=== PATIENT | male | born 1940 | race Caucasian/White ===

== ENCOUNTER 2018-11-17 10:26 | Emergency (ER) | payer OTHER ==
[~2018-11-17] VITALS: Ht 172.7 cm; Wt 77.3 kg
[2018-11-17] MEDS ORDERED: FluPHENAZine HCL 2.5 MG/ML INJ IM ONE (11:45)
[2018-11-17] MEDS ORDERED: HALOPERIDOL LACTATE 5 MG/ML VIAL IM ONE (11:45)
[2018-11-17] MEDS ORDERED: DiphenhydrAMINE HCL 50 MG/ML VIAL IM ONE (11:45)
[2018-11-17] MEDS ORDERED: LORazepam 2 MG/ML VIAL IM ONE (11:45)
[2018-11-17 13:47] LABS: BASOPHILS % (AUTO) 0.4 % (0.0-2.0); EOSINOPHILS % (AUTO) 0.3 % (1.0-6.0); HEMATOCRIT 42.6 % (41-53); HEMOGLOBIN 14.2 g/dL (13.5-17.5); LYMPHOCYTES % (AUTO) 10.3 % (22.0-44.0); MEAN CORPUSCULAR HEMOGLOBIN 30.4 pg (26.0-34.0); MEAN CORPUSCULAR HGB CONC 33.4 G/dL (31.0-37.0); MEAN CORPUSCULAR VOLUME 91 fL (80-100); MONOCYTES # (AUTO) 0.6 K/uL (0.1-1.0); MONOCYTES % (AUTO) 6.6 % (2.0-9.0); NEUTROPHILS # (AUTO) 7.6 K/uL (1.8-7.7); NEUTROPHILS % (AUTO) 82.4 % (40.0-70.0); PLATELET COUNT (AUTO) 240 K/uL (150-450); RED BLOOD CELL COUNT(AUTO) 4.67 MIL/uL (4.50-5.90); RED CELL DISTRIBUTION WIDTH 14.7 % (11.5-14.5)
[2018-11-17 13:56] LABS: ANION GAP 12 mmol/L (8-16); CALCIUM, TOTAL 9.5 mg/dL (8.8-10.5); CARBON DIOXIDE 24 mmol/L (22-29); CHLORIDE 103 mmol/L (98-107); CREATININE 0.84 mg/dL (0.60-1.30); GLUCOSE,RANDOM 109 mg/dL (70-110); POTASSIUM 3.8 mmol/L (3.5-5.1); SODIUM SERUM 139 mmol/L (136-145); UREA NITROGEN, BLOOD 10 mg/dL (7-18)
[2018-11-17 13:57] LABS: GLOMERULAR FILTR. RATE CALC > 60 mL/min (>60)
[2018-11-17 14:02] LABS: ALANINE AMINOTRANSFERASE 12 U/L (12-78); ALBUMIN 4.3 g/dL (3.4-5.0); ALKALINE PHOSPHATASE 54 U/L (46-116); ASPARTATE AMINOTRANSFERASE 20 U/L (15-37); BILIRUBIN,TOTAL 0.5 mg/dL (0.1-1.0); TOTAL PROTEIN, SERUM 7.5 g/dL (6.4-8.2)
[2018-11-17 14:38] LABS: THYROID STIMULATING HORMONE 1.64 uIU/mL (0.36-3.74); VALPROIC ACID < 3 mcg/mL (50-100)
[2018-11-17 17:59] VITALS: BP 135/87
== END 2018-11-17 18:00 | disposition short-term general hospital (02) ==
LOC: EMS 10:28
DX: F20.9 Schizophrenia, unspecified (principal); Z88.8 Allergy status to other drugs, medicaments and biological substances
CPT/HCPCS: 36415; 80053; 80164; 84443; 85025; 96372; 99285; G0480; J1200; J2060; J3490

== ENCOUNTER 2019-05-03 19:30 | Emergency (ER) | payer OTHER ==
[~2019-05-03] VITALS: Ht 172.7 cm; Wt 84.5 kg
[2019-05-03 20:44] LABS: BASOPHILS % (AUTO) 0.2 % (0.0-2.0); EOSINOPHILS % (AUTO) 0.3 % (1.0-6.0); HEMATOCRIT 40.1 % (41-53); HEMOGLOBIN 13.5 g/dL (13.5-17.5); LYMPHOCYTES # (AUTO) 1.5 K/uL (1.0-4.8); LYMPHOCYTES % (AUTO) 14.2 % (22.0-44.0); MEAN CORPUSCULAR HEMOGLOBIN 30.4 pg (26.0-34.0); MEAN CORPUSCULAR HGB CONC 33.5 G/dL (31.0-37.0); MEAN CORPUSCULAR VOLUME 91 fL (80-100); MONOCYTES % (AUTO) 9.3 % (2.0-9.0); NEUTROPHILS # (AUTO) 8.1 K/uL (1.8-7.7); PLATELET COUNT (AUTO) 248 K/uL (150-450); RED BLOOD CELL COUNT(AUTO) 4.42 MIL/uL (4.50-5.90); RED CELL DISTRIBUTION WIDTH 15.5 % (11.5-14.5)
[2019-05-03 20:56] LABS: ANION GAP 9 mmol/L (8-16); CALCIUM, TOTAL 9.2 mg/dL (8.8-10.5); CARBON DIOXIDE 27 mmol/L (22-29); CHLORIDE 103 mmol/L (98-107); CREATININE 0.95 mg/dL (0.60-1.30); GLUCOSE,RANDOM 115 mg/dL (70-110); POTASSIUM 4.2 mmol/L (3.5-5.1); SODIUM SERUM 139 mmol/L (136-145); UREA NITROGEN, BLOOD 13 mg/dL (7-18)
[2019-05-03 20:57] LABS: GLOMERULAR FILTR. RATE CALC > 60 mL/min (>60)
[2019-05-03 21:01] LABS: ALANINE AMINOTRANSFERASE 7 U/L (12-78); ALBUMIN 4.2 g/dL (3.4-5.0); ALKALINE PHOSPHATASE 56 U/L (46-116); ASPARTATE AMINOTRANSFERASE 18 U/L (15-37); BILIRUBIN,TOTAL 0.4 mg/dL (0.1-1.0); TOTAL PROTEIN, SERUM 7.2 g/dL (6.4-8.2)
[2019-05-03] MEDS ORDERED: LORazepam 2 MG/ML VIAL IM ONE (22:30)
[2019-05-03] MEDS ORDERED: FluPHENAZine HCL 2.5 MG/ML INJ IM ONE (22:30)
[2019-05-04 02:00] LABS: APPEARANCE,URINE CLEAR (CLEAR); BILIRUBIN,URINE NEGATIVE (NEGATIVE); GLUCOSE, URINE (UA) NEGATIVE (NEGATIVE); KETONES,URINE NEGATIVE (NEGATIVE); LEUKOCYTE ESTERASE ,URINE NEGATIVE (NEGATIVE); NITRATE,URINE NEGATIVE (NEGATIVE); OCCULT BLOOD,URINE NEGATIVE (NEGATIVE); PROTEIN,URINE NEGATIVE (NEGATIVE); UROBILINOGEN,URINE 0.2 mg/dL (<=1.0)
[2019-05-04 02:05] LABS: AMPHET/METH SCREEN,URINE NEGATIVE (NEGATIVE); BARBITURATE SCREEN, URINE NEGATIVE (NEGATIVE); BENZODIAZEPINES SCREEN,URINE NEGATIVE (NEGATIVE); CANNABINOID SCREEN,URINE NEGATIVE (NEGATIVE); COCAINE SCREEN,URINE NEGATIVE (NEGATIVE); METHADONE SCREEN, URINE NEGATIVE (NEGATIVE); OPIATE SCREEN,URINE NEGATIVE (NEGATIVE); PHENCYCLIDINE SCREEN,URINE NEGATIVE (NEGATIVE)
[2019-05-04 06:14] VITALS: BP 134/67
[2019-05-04] MEDS ORDERED: LORazepam 2 MG/ML VIAL IM ONE (06:45)
[2019-05-04] MEDS ORDERED: DiphenhydrAMINE HCL 50 MG/ML VIAL IM ONE (06:45)
== END 2019-05-04 07:06 | disposition short-term general hospital (02) ==
LOC: EMS 19:31
DX: F20.9 Schizophrenia, unspecified (principal); Z88.8 Allergy status to other drugs, medicaments and biological substances
CPT/HCPCS: 36415; 70450; 80053; 80307; 81003; 85025; 96372 ×2; 99285; G0480; J1200; J2060 ×2; J3490

== ENCOUNTER 2023-12-27 09:37 | Inpatient (IN) | payer MEDICARE, MEDICAID ==
[~2023-12-27] VITALS: Ht 175.3 cm; Wt 89.5 kg
[2023-12-27 14:32] LABS: COVID AG,FIA SOURCE NASAL SWAB
[2023-12-27 14:52] LABS: SARS-COV2 (COVID) ANTIGEN,FIA Negative (Negative)
[2023-12-27 18:47] LABS: APPEARANCE,URINE CLEAR (CLEAR); BILIRUBIN,URINE NEGATIVE (NEGATIVE); COLOR,URINE LIGHT YELLOW (YELLOW); GLUCOSE, URINE (UA) NEGATIVE (NEGATIVE); KETONES,URINE NEGATIVE (NEGATIVE); LEUKOCYTE ESTERASE ,URINE SMALL (NEGATIVE); NITRATE,URINE NEGATIVE (NEGATIVE); OCCULT BLOOD,URINE NEGATIVE (NEGATIVE); PROTEIN,URINE TRACE mg/dL (NEGATIVE); SPECIFIC GRAVITIY, URINE 1.022 (1.003-1.030); UROBILINOGEN,URINE <=1.0 mg/dL (<=1.0)
[2023-12-27 18:53] LABS: ALCOHOL, URINE DRUG SCREEN NEGATIVE (NEGATIVE); AMPHET/METH SCREEN,URINE NEGATIVE (NEGATIVE); BARBITURATE SCREEN, URINE NEGATIVE (NEGATIVE); BENZODIAZEPINES SCREEN,URINE NEGATIVE (NEGATIVE); CANNABINOID SCREEN,URINE NEGATIVE (NEGATIVE); COCAINE SCREEN,URINE NEGATIVE (NEGATIVE); METHADONE SCREEN, URINE NEGATIVE (NEGATIVE); OPIATE SCREEN,URINE NEGATIVE (NEGATIVE); PHENCYCLIDINE SCREEN,URINE NEGATIVE (NEGATIVE)
[2023-12-27 19:06] LABS: BACTERIA,URINE None Seen /HPF (None Seen); RBC,URINE None Seen /HPF (0-2); SQUAMOUS EPITHELIAL CELL,UR None Seen /LPF (None Seen); WBC,URINE 0-2 /HPF (0-5)
[2023-12-27] MEDS ORDERED: OLANZapine 5 MG RAPDIS TABLET PO PRN (23:15)
[2023-12-27] MEDS ORDERED: LORazepam 2 MG TABLET PO PRN (23:15)
[2023-12-27] MEDS ORDERED: ZOLPIDEM TARTRATE 10 MG TABLET PO PRN (23:15)
[2023-12-27] MEDS: LORazepam 2 MG/ML VIAL IM ONE (23:36)
[2023-12-27] MEDS: ZIPRASIDONE MESYLATE 20 MG/VIAL IM ONE (23:36)
[2023-12-27] MEDS: DiphenhydrAMINE HCL 50 MG/ML VIAL IM ONE (23:36)
[2023-12-28] MEDS: ChlorproMAZINE HCL 50 MG/2 ML AMP IM ONE (22:18)
[2023-12-28] MEDS ORDERED: MAG HYDROX/ALUMINUM HYD/SIMETH ES 30 ML SUSPENSION UDCUP PO PRN (22:30)
[2023-12-28] MEDS ORDERED: DOCUSATE SODIUM 100 MG CAPSULE PO PRN (22:30)
[2023-12-28] MEDS ORDERED: BENZOCAINE/MENTHOL LOZENGE PO PRN (22:30)
[2023-12-28] MEDS ORDERED: ONDANSETRON HCL 4 MG TABLET PO PRN (22:30)
[2023-12-28] MEDS ORDERED: MAGNESIUM HYDROXIDE SUSPENSION 30 ML UDCUP PO PRN (22:30)
[2023-12-28] MEDS ORDERED: ALBUTEROL SULFATE HFA 90 MCG/PUFF 8 GM INHALER IH PRN (22:30)
[2023-12-28] MEDS ORDERED: OMEPRAZOLE 20 MG CAPSULE PO PRN (22:30)
[2023-12-28] MEDS ORDERED: IBUPROFEN 600 MG TABLET PO PRN (22:30)
[2023-12-28] MEDS ORDERED: ACETAMINOPHEN 325 MG TABLET PO PRN (22:30)
[2023-12-28] MEDS ORDERED: CloNIDine HCL 0.1 MG TABLET PO PRN (22:30)
[2023-12-28] MEDS ORDERED: PETROLATUM,WHITE 28 GM JELLY TP PRN (22:30)
[2023-12-28] MEDS ORDERED: BACITRACIN 28 GM OINTMENT TP PRN (22:30)
[2023-12-28 22:33] VITALS: RESP 18
[2023-12-29 12:37] VITALS: RESP 18
[2023-12-29 21:24] VITALS: RESP 18
[2023-12-30 16:49] VITALS: BP 109/56; PULSE 67; RESP 19; TEMP 96
[2023-12-30] MEDS: LOPERAMIDE HCL 2 MG CAPSULE PO PRN (17:21)
[2023-12-30 19:48] LABS: APPEARANCE,URINE CLEAR (CLEAR); BILIRUBIN,URINE NEGATIVE (NEGATIVE); COLOR,URINE YELLOW (YELLOW); GLUCOSE, URINE (UA) NEGATIVE (NEGATIVE); KETONES,URINE NEGATIVE (NEGATIVE); LEUKOCYTE ESTERASE ,URINE MODERATE (NEGATIVE); NITRATE,URINE NEGATIVE (NEGATIVE); OCCULT BLOOD,URINE NEGATIVE (NEGATIVE); PROTEIN,URINE NEGATIVE (NEGATIVE); SPECIFIC GRAVITIY, URINE 1.023 (1.003-1.030); UROBILINOGEN,URINE <=1.0 mg/dL (<=1.0)
[2023-12-30 19:53] LABS: ALCOHOL, URINE DRUG SCREEN NEGATIVE (NEGATIVE); AMPHET/METH SCREEN,URINE NEGATIVE (NEGATIVE); BARBITURATE SCREEN, URINE NEGATIVE (NEGATIVE); BENZODIAZEPINES SCREEN,URINE NEGATIVE (NEGATIVE); CANNABINOID SCREEN,URINE NEGATIVE (NEGATIVE); COCAINE SCREEN,URINE NEGATIVE (NEGATIVE); METHADONE SCREEN, URINE NEGATIVE (NEGATIVE); OPIATE SCREEN,URINE NEGATIVE (NEGATIVE); PHENCYCLIDINE SCREEN,URINE NEGATIVE (NEGATIVE)
[2023-12-30 20:00] LABS: BACTERIA,URINE Rare /HPF (None Seen); RBC,URINE 0-2 /HPF (0-2); SQUAMOUS EPITHELIAL CELL,UR Rare /LPF (None Seen)
[2023-12-30 20:30] VITALS: RESP 18; TEMP 97.2
[2023-12-31 10:37] VITALS: BP 106/59; PULSE 102; RESP 18; TEMP 96.8
[2023-12-31 20:18] VITALS: RESP 18
[2024-01-01 10:50] VITALS: RESP 18
[2024-01-01] MEDS: RisperiDONE 3 MG TABLET PO SCH (17:00)
[2024-01-01] MEDS: NITROFURANTOIN MONOHYD/M-CRYST 100 MG CAPSULE [MACROBID] PO SCH (17:00)
[2024-01-01] MEDS: BENZTROPINE MESYLATE 2 MG TABLET PO SCH (21:00)
[2024-01-01 22:21] VITALS: RESP 18
[2024-01-02 08:44] VITALS: RESP 19
[2024-01-02 20:20] VITALS: RESP 18
[2024-01-03 10:58] VITALS: RESP 18
[2024-01-03 22:04] VITALS: RESP 18
[2024-01-04 08:22] VITALS: RESP 17
[2024-01-04 21:27] VITALS: RESP 18
[2024-01-05 10:59] VITALS: RESP 19
[2024-01-05 22:03] VITALS: RESP 18
[2024-01-06 10:16] VITALS: RESP 18
[2024-01-06 20:26] VITALS: RESP 18
[2024-01-07 08:18] VITALS: RESP 18
[2024-01-08 09:22] VITALS: RESP 18
[2024-01-08] MEDS ORDERED: HALOPERIDOL LACTATE 5 MG/ML VIAL ONE (11:59)
[2024-01-08] MEDS ORDERED: HALOPERIDOL LACTATE 5 MG/ML VIAL IM PRN (12:00)
[2024-01-08] MEDS: FluPHENAZine DECANOATE 25 MG/ML IM SCH (14:40)
[2024-01-08 20:02] VITALS: RESP 18
[2024-01-09 08:52] VITALS: RESP 18
[2024-01-09 20:13] VITALS: RESP 18
[2024-01-10 10:41] VITALS: RESP 18
[2024-01-10 20:43] VITALS: RESP 18
[2024-01-11 08:48] VITALS: RESP 17
[2024-01-11 20:57] VITALS: RESP 18
[2024-01-12 06:58] LABS: APPEARANCE,URINE CLEAR (CLEAR); BILIRUBIN,URINE NEGATIVE (NEGATIVE); COLOR,URINE LIGHT YELLOW (YELLOW); GLUCOSE, URINE (UA) NEGATIVE (NEGATIVE); KETONES,URINE NEGATIVE (NEGATIVE); LEUKOCYTE ESTERASE ,URINE TRACE (NEGATIVE); NITRATE,URINE NEGATIVE (NEGATIVE); OCCULT BLOOD,URINE NEGATIVE (NEGATIVE); PH,URINE 5.5 (5.0-8.0); PROTEIN,URINE NEGATIVE (NEGATIVE); SPECIFIC GRAVITIY, URINE 1.026 (1.003-1.030); UROBILINOGEN,URINE <=1.0 mg/dL (<=1.0)
[2024-01-12 07:14] LABS: BACTERIA,URINE None Seen /HPF (None Seen); RBC,URINE None Seen /HPF (0-2); WBC,URINE 0-2 /HPF (0-5)
[2024-01-12 09:02] VITALS: RESP 18
[2024-01-12 21:57] VITALS: RESP 18
[2024-01-13 09:10] VITALS: RESP 18
[2024-01-13] MEDS ORDERED: BENZ2TAB84 PO (13:45)
[2024-01-13] MEDS ORDERED: RISP3TAB77 PO (13:46)
== END 2024-01-14 00:04 | DRG 885 ==
LOC: EMS 09:37 → 3EC 12-28 21:23
PROVIDERS: ADMIT Psychiatry & Neurology Psychiatry; ATTEND Psychiatry & Neurology Psychiatry
PROC: GZ51ZZZ Individual Psychotherapy, Behavioral (ICD-10-PCS; principal; 2024-01-05)
PROC: GZHZZZZ Group Psychotherapy (ICD-10-PCS; 2024-01-05)
DX: F20.9 Schizophrenia, unspecified (principal); F41.9 Anxiety disorder, unspecified; M19.90 Unspecified osteoarthritis, unspecified site; G47.00 Insomnia, unspecified; Z20.822 Contact with and (suspected) exposure to COVID-19; I10 Essential (primary) hypertension; K59.00 Constipation, unspecified; Z88.8 Allergy status to other drugs, medicaments and biological substances; Z91.148 Patient's other noncompliance with medication regimen for other reason
CPT/HCPCS: 80307; 81001; 87086; 87186; 96372; 99284; 99285; J1200; J1630; J2060; J2680; J3230; J3486; J3535

== ENCOUNTER 2024-04-10 13:16 | Inpatient (IN) | payer MEDICARE, MEDICAID ==
[~2024-04-10] VITALS: Ht 170.2 cm; Wt 75.3 kg
[~2024-04-10 13:16] MED LIST: BENZ2TAB84 PO; RISP3TAB77 PO
[2024-04-10 14:29] VITALS: O2SAT 97
[2024-04-10] MEDS ORDERED: LORazepam 2 MG TABLET PO PRN (15:00)
[2024-04-10] MEDS ORDERED: ZOLPIDEM TARTRATE 10 MG TABLET PO PRN (15:00)
[2024-04-10] MEDS: ChlorproMAZINE HCL 50 MG/2 ML AMP IM ONE (15:18)
[2024-04-10] MEDS: DiphenhydrAMINE HCL 50 MG/ML VIAL IM ONE (15:18)
[2024-04-10] MEDS: LORazepam 2 MG/ML VIAL IM ONE (15:18)
[2024-04-10 17:47] LABS: COVID AG,FIA SOURCE NASAL SWAB
[2024-04-10 18:09] LABS: SARS-COV2 (COVID) ANTIGEN,FIA Negative (Negative)
[2024-04-10] MEDS ORDERED: MAG HYDROX/ALUMINUM HYD/SIMETH ES 30 ML SUSPENSION UDCUP PO PRN (20:45)
[2024-04-10] MEDS ORDERED: MAGNESIUM HYDROXIDE SUSPENSION 30 ML UDCUP PO PRN (20:45)
[2024-04-10] MEDS ORDERED: ALBUTEROL SULFATE HFA 90 MCG/PUFF 8 GM INHALER IH PRN (20:45)
[2024-04-10] MEDS ORDERED: OMEPRAZOLE 20 MG CAPSULE PO PRN (20:45)
[2024-04-10] MEDS ORDERED: DOCUSATE SODIUM 100 MG CAPSULE PO PRN (20:45)
[2024-04-10] MEDS ORDERED: BENZOCAINE/MENTHOL LOZENGE PO PRN (20:45)
[2024-04-10] MEDS ORDERED: BACITRACIN 28 GM OINTMENT TP PRN (20:45)
[2024-04-10] MEDS ORDERED: IBUPROFEN 600 MG TABLET PO PRN (20:45)
[2024-04-10] MEDS ORDERED: ACETAMINOPHEN 325 MG TABLET PO PRN (20:45)
[2024-04-10] MEDS ORDERED: PETROLATUM,WHITE 28 GM JELLY TP PRN (20:45)
[2024-04-10] MEDS ORDERED: CloNIDine HCL 0.1 MG TABLET PO PRN (20:45)
[2024-04-10] MEDS ORDERED: ONDANSETRON 4 MG TABLET PO PRN (20:45)
[2024-04-10 20:58] VITALS: BP 130/46; PULSE 80; RESP 20; TEMP 97.6; O2SAT 99
[2024-04-11 08:31] LABS: BASOPHILS % (AUTO) 0.2 % (0.0-2.0); EOSINOPHILS % (AUTO) 2.4 % (1.0-6.0); HEMATOCRIT 40.2 % (41-53); HEMOGLOBIN 13.5 g/dL (13.5-17.5); LYMPHOCYTES # (AUTO) 1.2 K/uL (1.0-4.8); LYMPHOCYTES % (AUTO) 14.5 % (22.0-44.0); MEAN CORPUSCULAR HEMOGLOBIN 30.7 pg (26.0-34.0); MEAN CORPUSCULAR HGB CONC 33.6 G/dL (31.0-37.0); MEAN CORPUSCULAR VOLUME 91 fL (80-100); MONOCYTES # (AUTO) 0.9 K/uL (0.1-1.0); MONOCYTES % (AUTO) 10.2 % (2.0-9.0); NEUTROPHILS # (AUTO) 6.2 K/uL (1.8-7.7); NEUTROPHILS % (AUTO) 72.7 % (40.0-70.0); PLATELET COUNT (AUTO) 238 K/uL (150-450); RED CELL DISTRIBUTION WIDTH 14.8 % (11.5-14.5); WHITE BLOOD COUNT (AUTO) 8.6 K/uL (4.5-11.0)
[2024-04-11 08:43] LABS: ANION GAP 14 mmol/L (8-16); CALCIUM, TOTAL 8.7 mg/dL (8.8-10.5); CARBON DIOXIDE 24 mmol/L (22-29); CHLORIDE 101 mmol/L (98-107); CREATININE 1.09 mg/dL (0.60-1.30); GLOMERULAR FILTR. RATE CALC > 60 mL/min (>60); GLUCOSE,RANDOM 104 mg/dL (70-110); SODIUM SERUM 139 mmol/L (136-145); UREA NITROGEN, BLOOD 15 mg/dL (7-18)
[2024-04-11 08:45] LABS: ALCOHOL, BLOOD (SERUM) < 3 mg/dL (0-10)
[2024-04-11] MEDS: POTASSIUM CHLORIDE 20 MEQ ER TABLET PO ONE (09:42)
[2024-04-11 12:40] VITALS: RESP 18
[2024-04-11 21:43] VITALS: RESP 18
[2024-04-12 08:07] VITALS: RESP 17
[2024-04-12] MEDS: DIVALPROEX SODIUM 500 MG DR TABLET PO SCH (17:00)
[2024-04-12] MEDS: MEMANTINE HCL 5 MG TABLET PO SCH (17:00)
[2024-04-12 20:09] VITALS: RESP 18
[2024-04-12] MEDS: BENZTROPINE MESYLATE 2 MG TABLET PO SCH (21:00)
[2024-04-13 08:01] VITALS: RESP 16
[2024-04-13] MEDS: OLANZapine 5 MG RAPDIS TABLET PO PRN (08:38)
[2024-04-13] MEDS: MEMANTINE HCL 10 MG TABLET PO SCH (08:38)
[2024-04-13 15:28] VITALS: BP 137/73; PULSE 94; RESP 20; O2SAT 98
[2024-04-13 22:02] VITALS: BP 112/52; PULSE 72; RESP 18; TEMP 96.8; O2SAT 98
[2024-04-14 08:41] VITALS: RESP 18
[2024-04-14 20:14] VITALS: RESP 18
[2024-04-15 11:16] VITALS: RESP 16
[2024-04-15 21:57] VITALS: RESP 18; TEMP 97.6
[2024-04-16 08:10] VITALS: RESP 16
[2024-04-17 10:37] VITALS: RESP 16; RESP 17
[2024-04-18] MEDS: LORazepam 2 MG/ML VIAL IM ONE (10:40)
[2024-04-18] MEDS: DiphenhydrAMINE HCL 50 MG/ML VIAL IM ONE (10:40)
[2024-04-18] MEDS: HALOPERIDOL LACTATE 5 MG/ML VIAL IM ONE (10:40)
[2024-04-18 21:24] VITALS: RESP 18
[2024-04-19] MEDS ORDERED: FluPHENAZine DECANOATE 25 MG/ML IM SCH (09:00)
[2024-04-19] MEDS ORDERED: LORazepam 2 MG/ML VIAL ONE (10:16)
[2024-04-19] MEDS ORDERED: DiphenhydrAMINE HCL 50 MG/ML VIAL ONE (10:16)
[2024-04-19] MEDS ORDERED: HALOPERIDOL LACTATE 5 MG/ML VIAL ONE (10:16)
[2024-04-19] MEDS: LORazepam 2 MG/ML VIAL IM ONE (10:30)
[2024-04-19] MEDS: DiphenhydrAMINE HCL 50 MG/ML VIAL IM ONE (10:30)
[2024-04-19] MEDS: HALOPERIDOL LACTATE 5 MG/ML VIAL IM ONE (10:30)
[2024-04-20 02:34] VITALS: RESP 18
[2024-04-20] MEDS ORDERED: HALOPERIDOL LACTATE 5 MG/ML VIAL IM PRN (10:00)
[2024-04-20 20:44] VITALS: RESP 18
[2024-04-21 08:49] VITALS: RESP 17
[2024-04-21 19:22] VITALS: RESP 17
[2024-04-21 20:09] VITALS: RESP 17
[2024-04-22 08:00] VITALS: RESP 17
[2024-04-22 21:17] VITALS: RESP 18
[2024-04-23 16:23] VITALS: RESP 18
[2024-04-23 20:09] VITALS: RESP 18
[2024-04-24 08:11] VITALS: RESP 18
[2024-04-24 20:37] VITALS: RESP 17
[2024-04-25] VITALS (8 sets, daily range): BP systolic 91–127; BP diastolic 55–68; PULSE 73–110; RESP 16–18; TEMP 96–98.9; O2SAT 95–98
[2024-04-25] MEDS: LORazepam 2 MG/ML VIAL IM ONE (11:25)
[2024-04-25] MEDS: DiphenhydrAMINE HCL 50 MG/ML VIAL IM ONE (11:26)
[2024-04-25] MEDS: HALOPERIDOL LACTATE 5 MG/ML VIAL IM ONE (11:26)
[2024-04-26 08:09] VITALS: RESP 17
[2024-04-26 14:01] VITALS: RESP 17; TEMP 97.6
[2024-04-26 14:41] VITALS: BP 123/52; PULSE 76; RESP 18; TEMP 96.7; O2SAT 97
[2024-04-26 20:00] VITALS: RESP 18
[2024-04-26 22:46] VITALS: RESP 17
[2024-04-27 08:28] VITALS: RESP 15
[2024-04-27 13:52] VITALS: RESP 15
[2024-04-28 08:45] VITALS: RESP 17
[2024-04-28 10:22] VITALS: RESP 16
[2024-04-28 20:21] VITALS: RESP 18
[2024-04-29 01:35] VITALS: RESP 18; TEMP 98
[2024-04-29 08:00] VITALS: RESP 18
[2024-04-30 20:47] VITALS: RESP 18
[2024-05-01 09:15] VITALS: BP 80/45; PULSE 128; RESP 18; O2SAT 98
[2024-05-01 09:19] VITALS: BP 100/50; PULSE 126; RESP 16; O2SAT 98
[2024-05-01 14:55] VITALS: BP 115/72; PULSE 93; RESP 19; O2SAT 97
[2024-05-02 09:22] VITALS: RESP 18
[2024-05-02 20:55] VITALS: BP 98/70; PULSE 73; RESP 18; TEMP 97.3; O2SAT 94
[2024-05-03 08:30] VITALS: RESP 16
[2024-05-03] MEDS: RisperiDONE 2 MG TABLET PO SCH (17:00)
[2024-05-03 20:19] VITALS: RESP 18
[2024-05-03] MEDS: FluPHENAZine HCL 2.5 MG/ML INJ IM PRN (20:40)
[2024-05-04 08:24] VITALS: RESP 17
[2024-05-04 20:03] VITALS: BP 131/67; PULSE 86; RESP 18; TEMP 97.4; O2SAT 94
[2024-05-05 08:23] VITALS: RESP 18
[2024-05-05 20:33] VITALS: RESP 16
[2024-05-06 08:01] VITALS: RESP 17
[2024-05-06 08:03] VITALS: RESP 16
[2024-05-06 20:43] VITALS: RESP 18
[2024-05-07 09:33] VITALS: RESP 18
[2024-05-07 21:37] VITALS: RESP 18
[2024-05-08 08:17] VITALS: RESP 17
[2024-05-08 20:46] VITALS: RESP 17
[2024-05-08 20:47] VITALS: RESP 18
[2024-05-10 08:50] VITALS: RESP 16
[2024-05-11 12:41] VITALS: RESP 16
[2024-05-11 20:02] VITALS: RESP 16
[2024-05-11] MEDS: LOPERAMIDE HCL 2 MG CAPSULE PO PRN (21:57)
[2024-05-12 09:52] LABS: C.DIFF GDH ANTIGEN, Stool Negative (Negative); C.DIFF TOXINS A&B, Stool Negative (Negative)
== END 2024-05-12 18:19 | disposition short-term general hospital (02) | DRG 885 ==
LOC: EMS 13:29 → B2X 18:01
PROVIDERS: ADMIT Psychiatry & Neurology Psychiatry; ATTEND Psychiatry & Neurology Psychiatry
DX: F20.9 Schizophrenia, unspecified (principal); F41.9 Anxiety disorder, unspecified; E87.6 Hypokalemia; I10 Essential (primary) hypertension; G47.00 Insomnia, unspecified; K59.00 Constipation, unspecified; Z20.822 Contact with and (suspected) exposure to COVID-19; F94.0 Selective mutism; Z91.148 Patient's other noncompliance with medication regimen for other reason; Z88.8 Allergy status to other drugs, medicaments and biological substances
CPT/HCPCS: 80048; 85025; 87081; 87324; 87449; 87481; G0480; J1200; J1630; J2060; J2680; J3230; J3490

== ENCOUNTER 2024-04-14 10:32 | Emergency (ER) | payer MEDICAID, MEDICARE ==
[~2024-04-14] VITALS: Ht 177.8 cm; Wt 81.0 kg
[2024-04-14 11:46] LABS: BASOPHILS % (AUTO) 0.2 % (0.0-2.0); EOSINOPHILS % (AUTO) 2.5 % (1.0-6.0); HEMATOCRIT 42.9 % (41-53); HEMOGLOBIN 14.3 g/dL (13.5-17.5); LYMPHOCYTES # (AUTO) 1.6 K/uL (1.0-4.8); LYMPHOCYTES % (AUTO) 18.4 % (22.0-44.0); MEAN CORPUSCULAR HEMOGLOBIN 30.2 pg (26.0-34.0); MEAN CORPUSCULAR HGB CONC 33.2 G/dL (31.0-37.0); MEAN CORPUSCULAR VOLUME 91 fL (80-100); MONOCYTES # (AUTO) 0.9 K/uL (0.1-1.0); MONOCYTES % (AUTO) 10.4 % (2.0-9.0); NEUTROPHILS # (AUTO) 5.9 K/uL (1.8-7.7); NEUTROPHILS % (AUTO) 68.5 % (40.0-70.0); PLATELET COUNT (AUTO) 235 K/uL (150-450); RED BLOOD CELL COUNT(AUTO) 4.72 MIL/uL (4.50-5.90); RED CELL DISTRIBUTION WIDTH 14.7 % (11.5-14.5); WHITE BLOOD COUNT (AUTO) 8.6 K/uL (4.5-11.0)
[2024-04-14 12:06] LABS: ANION GAP 20 mmol/L (8-16); CALCIUM, TOTAL 8.7 mg/dL (8.8-10.5); CARBON DIOXIDE 19 mmol/L (22-29); CHLORIDE 99 mmol/L (98-107); CREATININE 0.94 mg/dL (0.60-1.30); GLOMERULAR FILTR. RATE CALC > 60 mL/min (>60); GLUCOSE,RANDOM 72 mg/dL (70-110); POTASSIUM 3.4 mmol/L (3.5-5.1); SODIUM SERUM 138 mmol/L (136-145); UREA NITROGEN, BLOOD 12 mg/dL (7-18)
[2024-04-14 12:10] LABS: ALCOHOL, BLOOD (SERUM) < 3 mg/dL (0-10)
[2024-04-14 12:26] LABS: ALANINE AMINOTRANSFERASE 23 U/L (12-78); ALBUMIN 3.7 g/dL (3.4-5.0); ALKALINE PHOSPHATASE 56 U/L (46-116); ASPARTATE AMINOTRANSFERASE 28 U/L (15-37); TOTAL PROTEIN, SERUM 7.3 g/dL (6.4-8.2)
[2024-04-14] MEDS: POTASSIUM CHLORIDE 10 MEQ ER TABLET PO ONE (13:54)
[2024-04-14 14:23] VITALS: BP 142/75; PULSE 85; RESP 16; O2SAT 97
== END 2024-04-14 15:03 ==
LOC: EMS 10:32
DX: F69 Unspecified disorder of adult personality and behavior (principal); I10 Essential (primary) hypertension; Z88.6 Allergy status to analgesic agent; Z88.8 Allergy status to other drugs, medicaments and biological substances; Z91.011 Allergy to milk products
CPT/HCPCS: 99285; 80048; 80076; 85025; 36415; G0480; 99283

== ENCOUNTER → 2024-05-01 | Emergency (ER) | payer MEDICARE, MEDICAID ==
[~2024-05-01] VITALS: Ht 177.8 cm; Wt 81.0 kg
[2024-05-01 17:32] VITALS: TEMP 98
[2024-05-01 19:58] LABS: ANION GAP 15 mmol/L (8-16); CALCIUM, TOTAL 9.3 mg/dL (8.8-10.5); CARBON DIOXIDE 26 mmol/L (22-29); CHLORIDE 96 mmol/L (98-107); CREATININE 1.17 mg/dL (0.60-1.30); GLOMERULAR FILTR. RATE CALC 59 mL/min (>60); GLUCOSE,RANDOM 114 mg/dL (70-110); POTASSIUM 3.4 mmol/L (3.5-5.1); SODIUM SERUM 137 mmol/L (136-145); UREA NITROGEN, BLOOD 9 mg/dL (7-18)
[2024-05-01 20:01] LABS: ALANINE AMINOTRANSFERASE 18 U/L (12-78); ALBUMIN 3.9 g/dL (3.4-5.0); ALKALINE PHOSPHATASE 69 U/L (46-116); ASPARTATE AMINOTRANSFERASE 24 U/L (15-37)
[2024-05-01 20:03] LABS: ALCOHOL, BLOOD (SERUM) < 3 mg/dL (0-10); BASOPHILS % (AUTO) 0.6 % (0.0-2.0); EOSINOPHILS % (AUTO) 1.7 % (1.0-6.0); HEMATOCRIT 52.3 % (41-53); HEMOGLOBIN 16.6 g/dL (13.5-17.5); LYMPHOCYTES # (AUTO) 2.2 K/uL (1.0-4.8); LYMPHOCYTES % (AUTO) 19.2 % (22.0-44.0); MEAN CORPUSCULAR HEMOGLOBIN 29.8 pg (26.0-34.0); MEAN CORPUSCULAR HGB CONC 31.8 G/dL (31.0-37.0); MEAN CORPUSCULAR VOLUME 94 fL (80-100); MONOCYTES # (AUTO) 1.2 K/uL (0.1-1.0); MONOCYTES % (AUTO) 10.5 % (2.0-9.0); NEUTROPHILS # (AUTO) 7.8 K/uL (1.8-7.7); PLATELET COUNT (AUTO) 182 K/uL (150-450); RED BLOOD CELL COUNT(AUTO) 5.57 MIL/uL (4.50-5.90); RED CELL DISTRIBUTION WIDTH 15.9 % (11.5-14.5); WHITE BLOOD COUNT (AUTO) 11.5 K/uL (4.5-11.0)
[2024-05-01] MEDS: POTASSIUM CHLORIDE 10 MEQ ER TABLET PO ONE (21:41)
[2024-05-02 00:13] VITALS: BP 118/71; PULSE 64; RESP 16; O2SAT 96
== END | disposition still patient (30) ==
LOC: EMS 15:35
DX: F20.9 Schizophrenia, unspecified (principal); E87.6 Hypokalemia; I11.9 Hypertensive heart disease without heart failure; E73.9 Lactose intolerance, unspecified
CPT/HCPCS: 99283; 80048; 80076; 85025; 36415; G0480

== ENCOUNTER 2024-05-12 03:11 | Inpatient (IN) | payer MEDICARE, MEDICAID ==
[~2024-05-12] VITALS: Ht 172.7 cm; Wt 73.8 kg
[2024-05-12 10:24] LABS: BASOPHILS % (AUTO) 0.3 % (0.0-2.0); EOSINOPHILS % (AUTO) 1.9 % (1.0-6.0); HEMATOCRIT 44.1 % (41-53); HEMOGLOBIN 14.9 g/dL (13.5-17.5); LYMPHOCYTES % (AUTO) 18.8 % (22.0-44.0); MEAN CORPUSCULAR HEMOGLOBIN 30.3 pg (26.0-34.0); MEAN CORPUSCULAR HGB CONC 33.8 G/dL (31.0-37.0); MEAN CORPUSCULAR VOLUME 90 fL (80-100); MONOCYTES # (AUTO) 1.2 K/uL (0.1-1.0); MONOCYTES % (AUTO) 11.3 % (2.0-9.0); NEUTROPHILS # (AUTO) 7.2 K/uL (1.8-7.7); NEUTROPHILS % (AUTO) 67.7 % (40.0-70.0); PLATELET COUNT (AUTO) 257 K/uL (150-450); RED BLOOD CELL COUNT(AUTO) 4.92 MIL/uL (4.50-5.90); WHITE BLOOD COUNT (AUTO) 10.6 K/uL (4.5-11.0)
[2024-05-12 10:41] LABS: ANION GAP 9 mmol/L (8-16); CALCIUM, TOTAL 8.6 mg/dL (8.8-10.5); CARBON DIOXIDE 30 mmol/L (22-29); CHLORIDE 97 mmol/L (98-107); CREATININE 1.02 mg/dL (0.60-1.30); GLOMERULAR FILTR. RATE CALC > 60 mL/min (>60); GLUCOSE,RANDOM 95 mg/dL (70-110); POTASSIUM 3.2 mmol/L (3.5-5.1); SODIUM SERUM 136 mmol/L (136-145); UREA NITROGEN, BLOOD 13 mg/dL (7-18)
[2024-05-12 10:42] LABS: LIPASE 15 U/L (16-77)
[2024-05-12] MEDS ORDERED: MORPHINE SULFATE 2 MG/ML SYRINGE IVP PRN (12:00)
[2024-05-12] MEDS ORDERED: ONDANSETRON HCL 4 MG/2 ML VIAL IVP PRN (12:00)
[2024-05-12] MEDS ORDERED: BISACODYL 10 MG RECTAL RECTAL SUPPOSITORY PR PRN (12:00)
[2024-05-12] MEDS ORDERED: HYDROCODONE/ACETAMINOPHEN 5-325 MG TABLET PO PRN (12:00)
[2024-05-12] MEDS ORDERED: ACETAMINOPHEN 325 MG TABLET PO PRN (12:00)
[2024-05-12] MEDS ORDERED: ZOLPIDEM TARTRATE 5 MG TABLET PO PRN (12:00)
[2024-05-12] MEDS ORDERED: MAGNESIUM HYDROXIDE SUSPENSION 30 ML UDCUP PO PRN (12:00)
[2024-05-12 14:21] VITALS: BP 106/64; PULSE 100; RESP 20; TEMP 98.4; O2SAT 96
[2024-05-12] MEDS: HEPARIN SODIUM,PORCINE 5,000 UNITS/ML VIAL SQ SCH (15:46)
[2024-05-12 20:03] VITALS: BP 130/68; PULSE 84; RESP 19; TEMP 97.8; O2SAT 96
[2024-05-12] MEDS: DOCUSATE SODIUM 100 MG CAPSULE PO SCH (21:00)
[2024-05-12] MEDS: RisperiDONE 3 MG TABLET PO SCH (21:00)
[2024-05-12] MEDS: BENZTROPINE MESYLATE 2 MG TABLET PO SCH (21:00)
[2024-05-13] MEDS: PANTOPRAZOLE SODIUM 40 MG DR TABLET PO SCH (08:22)
[2024-05-13 15:29] VITALS: BP 115/65; PULSE 77; RESP 20; TEMP 98.1; O2SAT 98
[2024-05-13 20:25] VITALS: BP 117/69; PULSE 85; RESP 20; TEMP 98.5; O2SAT 96
[2024-05-14 05:00] VITALS: BP 126/69; PULSE 88; RESP 18; TEMP 98; O2SAT 96
[2024-05-14 07:24] LABS: BASOPHILS % (AUTO) 0.2 % (0.0-2.0); EOSINOPHILS % (AUTO) 3.3 % (1.0-6.0); HEMATOCRIT 45.7 % (41-53); HEMOGLOBIN 15.6 g/dL (13.5-17.5); LYMPHOCYTES # (AUTO) 1.6 K/uL (1.0-4.8); LYMPHOCYTES % (AUTO) 16.4 % (22.0-44.0); MEAN CORPUSCULAR HEMOGLOBIN 30.5 pg (26.0-34.0); MEAN CORPUSCULAR HGB CONC 34.1 G/dL (31.0-37.0); MEAN CORPUSCULAR VOLUME 90 fL (80-100); MONOCYTES # (AUTO) 1.1 K/uL (0.1-1.0); MONOCYTES % (AUTO) 11.6 % (2.0-9.0); NEUTROPHILS # (AUTO) 6.5 K/uL (1.8-7.7); NEUTROPHILS % (AUTO) 68.5 % (40.0-70.0); PLATELET COUNT (AUTO) 254 K/uL (150-450); RED BLOOD CELL COUNT(AUTO) 5.11 MIL/uL (4.50-5.90); WHITE BLOOD COUNT (AUTO) 9.5 K/uL (4.5-11.0)
[2024-05-14 07:30] LABS: ANION GAP 7 mmol/L (8-16); CALCIUM, TOTAL 8.8 mg/dL (8.8-10.5); CARBON DIOXIDE 29 mmol/L (22-29); CHLORIDE 97 mmol/L (98-107); CREATININE 0.76 mg/dL (0.60-1.30); GLOMERULAR FILTR. RATE CALC > 60 mL/min (>60); GLUCOSE,RANDOM 95 mg/dL (70-110); SODIUM SERUM 133 mmol/L (136-145); UREA NITROGEN, BLOOD 9 mg/dL (7-18)
[2024-05-14 07:36] LABS: POTASSIUM 2.5 mmol/L (3.5-5.1)
[2024-05-14] MEDS: POTASSIUM CHLORIDE 10% 40 MEQ/30 ML LIQUID UDCUP PO ONE (08:30)
[2024-05-14 15:57] VITALS: BP 111/55; PULSE 77; RESP 18; TEMP 98.1; O2SAT 100
[2024-05-14 16:56] VITALS: BP 115/56; PULSE 79; RESP 18; TEMP 98; O2SAT 100
[2024-05-14 21:08] VITALS: BP 104/68; PULSE 79; RESP 18; O2SAT 95
[2024-05-15 13:02] LABS: ANION GAP 2 mmol/L (8-16); CALCIUM, TOTAL 8.3 mg/dL (8.8-10.5); CARBON DIOXIDE 31 mmol/L (22-29); CHLORIDE 101 mmol/L (98-107); CREATININE 0.93 mg/dL (0.60-1.30); GLOMERULAR FILTR. RATE CALC > 60 mL/min (>60); GLUCOSE,RANDOM 105 mg/dL (70-110); SODIUM SERUM 134 mmol/L (136-145); UREA NITROGEN, BLOOD 10 mg/dL (7-18)
[2024-05-15 13:04] LABS: POTASSIUM 2.6 mmol/L (3.5-5.1)
[2024-05-15] MEDS: POTASSIUM CHLORIDE 20 MEQ ER TABLET PO ONE (13:16)
[2024-05-15 20:16] VITALS: BP 115/64; PULSE 77; RESP 19; TEMP 97.9; O2SAT 96
[2024-05-15 23:16] VITALS: BP 110/73; PULSE 63; RESP 19; TEMP 97.9; O2SAT 96
[2024-05-16 09:38] VITALS: BP 91/48; PULSE 81; RESP 20; TEMP 98; O2SAT 93
[2024-05-16 10:05] LABS: BASOPHILS % (AUTO) 0.3 % (0.0-2.0); EOSINOPHILS % (AUTO) 3.4 % (1.0-6.0); HEMATOCRIT 44.5 % (41-53); HEMOGLOBIN 15.1 g/dL (13.5-17.5); LYMPHOCYTES # (AUTO) 1.6 K/uL (1.0-4.8); LYMPHOCYTES % (AUTO) 15.3 % (22.0-44.0); MEAN CORPUSCULAR HEMOGLOBIN 30.2 pg (26.0-34.0); MEAN CORPUSCULAR HGB CONC 33.8 G/dL (31.0-37.0); MEAN CORPUSCULAR VOLUME 89 fL (80-100); MONOCYTES # (AUTO) 1.1 K/uL (0.1-1.0); MONOCYTES % (AUTO) 10.7 % (2.0-9.0); NEUTROPHILS # (AUTO) 7.2 K/uL (1.8-7.7); NEUTROPHILS % (AUTO) 70.3 % (40.0-70.0); PLATELET COUNT (AUTO) 262 K/uL (150-450); RED BLOOD CELL COUNT(AUTO) 4.98 MIL/uL (4.50-5.90); RED CELL DISTRIBUTION WIDTH 15.1 % (11.5-14.5); WHITE BLOOD COUNT (AUTO) 10.2 K/uL (4.5-11.0)
[2024-05-16 10:12] LABS: ANION GAP 9 mmol/L (8-16); CARBON DIOXIDE 28 mmol/L (22-29); CHLORIDE 96 mmol/L (98-107); CREATININE 0.62 mg/dL (0.60-1.30); GLOMERULAR FILTR. RATE CALC > 60 mL/min (>60); GLUCOSE,RANDOM 96 mg/dL (70-110); SODIUM SERUM 133 mmol/L (136-145); UREA NITROGEN, BLOOD 9 mg/dL (7-18)
[2024-05-16 10:13] LABS: CALCIUM, TOTAL 8.4 mg/dL (8.8-10.5)
[2024-05-16 10:16] LABS: POTASSIUM 2.5 mmol/L (3.5-5.1)
[2024-05-16 14:48] VITALS: BP 104/50; PULSE 88; RESP 19; TEMP 98.6; O2SAT 93
[2024-05-16 16:06] VITALS: BP 125/64; PULSE 85; RESP 20; TEMP 98; O2SAT 97
[2024-05-16 20:09] VITALS: BP 108/65; PULSE 80; RESP 18; TEMP 98.6; O2SAT 98
[2024-05-17 08:44] VITALS: BP 118/70; PULSE 79; RESP 18; TEMP 98; O2SAT 98
[2024-05-17 12:00] VITALS: BP 115/68; PULSE 75; RESP 18; TEMP 97.5; O2SAT 98
[2024-05-17 20:13] VITALS: BP 90/50; PULSE 84; RESP 18; TEMP 97.6; O2SAT 92
[2024-05-17 20:27] VITALS: BP 98/57; PULSE 77
[2024-05-18 00:35] VITALS: BP 113/52; PULSE 82; RESP 17; TEMP 97.5; O2SAT 95
[2024-05-18 04:20] VITALS: BP 104/61; PULSE 79; RESP 18; TEMP 98.1; O2SAT 95
[2024-05-18 08:29] VITALS: BP 106/54; PULSE 73; RESP 18; TEMP 98.1; O2SAT 95
[2024-05-18 10:00] LABS: BASOPHILS % (AUTO) 0.2 % (0.0-2.0); EOSINOPHILS % (AUTO) 4.2 % (1.0-6.0); HEMOGLOBIN 14.4 g/dL (13.5-17.5); LYMPHOCYTES # (AUTO) 2.2 K/uL (1.0-4.8); LYMPHOCYTES % (AUTO) 22.5 % (22.0-44.0); MEAN CORPUSCULAR HEMOGLOBIN 30.7 pg (26.0-34.0); MEAN CORPUSCULAR HGB CONC 34.4 G/dL (31.0-37.0); MEAN CORPUSCULAR VOLUME 89 fL (80-100); MONOCYTES # (AUTO) 1.1 K/uL (0.1-1.0); MONOCYTES % (AUTO) 11.1 % (2.0-9.0); PLATELET COUNT (AUTO) 252 K/uL (150-450); RED CELL DISTRIBUTION WIDTH 14.7 % (11.5-14.5); WHITE BLOOD COUNT (AUTO) 9.6 K/uL (4.5-11.0)
[2024-05-18 10:10] LABS: CHLORIDE 97 mmol/L (98-107); SODIUM SERUM 134 mmol/L (136-145)
[2024-05-18 10:56] LABS: POTASSIUM 2.7 mmol/L (3.5-5.1)
[2024-05-18 10:58] LABS: ANION GAP 7 mmol/L (8-16); CARBON DIOXIDE 30 mmol/L (22-29)
[2024-05-18 10:59] LABS: CALCIUM, TOTAL 8.1 mg/dL (8.8-10.5); CREATININE 0.64 mg/dL (0.60-1.30); GLOMERULAR FILTR. RATE CALC > 60 mL/min (>60); GLUCOSE,RANDOM 94 mg/dL (70-110); UREA NITROGEN, BLOOD 7 mg/dL (7-18)
[2024-05-18] MEDS ORDERED: POTASSIUM CHLORIDE 20 MEQ ER TABLET PO PRN (11:15)
[2024-05-18 20:13] VITALS: BP 123/64; PULSE 66; RESP 18; TEMP 97.6; O2SAT 95
[2024-05-19 03:54] VITALS: BP 103/59; PULSE 78; RESP 18; TEMP 98.5; O2SAT 98
[2024-05-19 08:40] VITALS: BP 106/75; PULSE 78; RESP 18; TEMP 98.7; O2SAT 98
[2024-05-19 20:11] VITALS: BP 105/52; PULSE 78; RESP 18; TEMP 98.2; O2SAT 97
[2024-05-20 05:00] VITALS: BP 102/59; PULSE 74; RESP 18; TEMP 98; O2SAT 100
[2024-05-20 08:54] VITALS: BP 136/94; PULSE 74; RESP 17; TEMP 97.8; O2SAT 93
[2024-05-20 14:56] VITALS: BP 112/57; PULSE 78; RESP 18; TEMP 96.6; O2SAT 100
[2024-05-20] MEDS ORDERED: HALOPERIDOL LACTATE 5 MG/ML VIAL IM ONE (16:30)
[2024-05-20] MEDS ORDERED: MAGNESIUM OXIDE 400 MG TABLET PO PRN (16:30)
[2024-05-20] MEDS ORDERED: MAGNESIUM SULFATE 2 GM/WATER 50 ML IV PRN (16:30)
[2024-05-20] MEDS ORDERED: MAGNESIUM SULFATE 4 GM/WATER 100 ML IV PRN (16:30)
[2024-05-20] MEDS: DiphenhydrAMINE HCL 50 MG/ML VIAL IM ONE (19:21)
[2024-05-20] MEDS: LORazepam 2 MG/ML VIAL IM ONE (19:21)
[2024-05-20] MEDS: ZIPRASIDONE MESYLATE 20 MG/VIAL IM ONE (19:21)
[2024-05-20 19:27] VITALS: BP 126/85; PULSE 76; RESP 18; TEMP 98; O2SAT 100
[2024-05-20] MEDS: SODIUM CHLORIDE 0.45% IV ONE (19:51)
[2024-05-20] MEDS: POTASSIUM CHLORIDE IV ONE (19:51)
[2024-05-20] MEDS: DEXTROSE 5%-LACTATED RINGERS 1,000 ML IV ONE (22:41)
[2024-05-21] MEDS ORDERED: SODIUM CHLORIDE 0.9% 500 ML IV ONE (01:16)
[2024-05-21] MEDS: POTASSIUM CHL 10 MEQ/WATER 50 ML IV PRN (01:24)
[2024-05-21 04:25] VITALS: BP 109/55; PULSE 74; RESP 18; TEMP 97.8; O2SAT 96
[2024-05-21 06:59] LABS: BASOPHILS % (AUTO) 0.2 % (0.0-2.0); EOSINOPHILS % (AUTO) 0.5 % (1.0-6.0); HEMATOCRIT 39.5 % (41-53); HEMOGLOBIN 13.6 g/dL (13.5-17.5); LYMPHOCYTES # (AUTO) 0.8 K/uL (1.0-4.8); MEAN CORPUSCULAR HEMOGLOBIN 31.1 pg (26.0-34.0); MEAN CORPUSCULAR HGB CONC 34.4 G/dL (31.0-37.0); MEAN CORPUSCULAR VOLUME 90 fL (80-100); MONOCYTES # (AUTO) 0.7 K/uL (0.1-1.0); NEUTROPHILS # (AUTO) 9.5 K/uL (1.8-7.7); PLATELET COUNT (AUTO) 247 K/uL (150-450); RED BLOOD CELL COUNT(AUTO) 4.38 MIL/uL (4.50-5.90); RED CELL DISTRIBUTION WIDTH 14.9 % (11.5-14.5)
[2024-05-21 07:03] LABS: NEUTROPHILS % (AUTO) 86.3 % (40.0-70.0)
[2024-05-21 07:15] LABS: ANION GAP 5 mmol/L (8-16); CALCIUM, TOTAL 7.7 mg/dL (8.8-10.5); CARBON DIOXIDE 33 mmol/L (22-29); CHLORIDE 96 mmol/L (98-107); GLOMERULAR FILTR. RATE CALC > 60 mL/min (>60); GLUCOSE,RANDOM 118 mg/dL (70-110); SODIUM SERUM 134 mmol/L (136-145); UREA NITROGEN, BLOOD 8 mg/dL (7-18)
[2024-05-21 07:24] LABS: POTASSIUM 2.7 mmol/L (3.5-5.1)
[2024-05-21 08:00] VITALS: BP 90/52; PULSE 76; RESP 20; TEMP 98.1; O2SAT 100
[2024-05-21] MEDS ORDERED: SODIUM CHLORIDE 0.9% 1,000 ML ONE (08:02)
[2024-05-21] MEDS: POTASSIUM CHLORIDE 10% 40 MEQ/30 ML LIQUID UDCUP PO ONE (08:45)
[2024-05-21] MEDS: LORazepam 2 MG/ML VIAL IVP ONE (09:45)
[2024-05-21] MEDS: ZIPRASIDONE MESYLATE 20 MG/VIAL IM ONE (09:45)
[2024-05-21] MEDS: MAGNESIUM SULFATE 2 GM/WATER 50 ML IV ONE (09:51)
[2024-05-21] MEDS: POTASSIUM CHL 10 MEQ/WATER 50 ML IV SCH ×2 (12:49→22:18)
[2024-05-21 15:31] VITALS: BP 102/48; PULSE 81; RESP 20; TEMP 98.8; O2SAT 99
[2024-05-21 19:55] VITALS: BP 103/64; PULSE 79; RESP 18; TEMP 98.9; O2SAT 96
[2024-05-21 21:43] LABS: ANION GAP 4 mmol/L (8-16); CALCIUM, TOTAL 7.3 mg/dL (8.8-10.5); CARBON DIOXIDE 31 mmol/L (22-29); CHLORIDE 101 mmol/L (98-107); CREATININE 0.74 mg/dL (0.60-1.30); GLOMERULAR FILTR. RATE CALC > 60 mL/min (>60); GLUCOSE,RANDOM 97 mg/dL (70-110); SODIUM SERUM 136 mmol/L (136-145); UREA NITROGEN, BLOOD 7 mg/dL (7-18)
[2024-05-21] MEDS: RINGERS SOLUTION,LACTATED 1,000 ML IV SCH (23:50)
[2024-05-22 04:55] VITALS: BP 118/71; PULSE 82; RESP 18; TEMP 97.9; O2SAT 98
[2024-05-22 07:26] VITALS: BP 122/72; PULSE 84; RESP 18; TEMP 98.4; O2SAT 97
[2024-05-22 19:52] VITALS: BP 116/67; PULSE 88; RESP 18; TEMP 98.5; O2SAT 97
[2024-05-23 05:30] VITALS: BP 109/55; PULSE 74; RESP 20; TEMP 97.9; O2SAT 96
[2024-05-23 06:37] LABS: COVID AG,FIA SOURCE NASAL SWAB
[2024-05-23 07:27] LABS: ANION GAP 4 mmol/L (8-16); CALCIUM, TOTAL 7.5 mg/dL (8.8-10.5); CARBON DIOXIDE 30 mmol/L (22-29); CHLORIDE 101 mmol/L (98-107); CREATININE 0.76 mg/dL (0.60-1.30); GLOMERULAR FILTR. RATE CALC > 60 mL/min (>60); GLUCOSE,RANDOM 77 mg/dL (70-110); POTASSIUM 3.6 mmol/L (3.5-5.1); SODIUM SERUM 135 mmol/L (136-145); UREA NITROGEN, BLOOD 8 mg/dL (7-18)
[2024-05-23 07:43] VITALS: BP 112/66; PULSE 72; RESP 19; TEMP 98; O2SAT 97
[2024-05-23 08:23] LABS: SARS-COV2 (COVID) ANTIGEN,FIA Negative (Negative)
[2024-05-23 20:23] VITALS: BP 92/48; PULSE 83; RESP 18; TEMP 97.6; O2SAT 97
[2024-05-23 21:05] VITALS: BP 107/52; PULSE 71; RESP 18; O2SAT 95
[2024-05-24 02:00] VITALS: BP 104/66; PULSE 66; RESP 18; TEMP 97.8; O2SAT 98
== END 2024-05-24 10:30 | DRG 640 ==
LOC: EMS 03:11 → EDH 12:55 → 6N 14:11 → 6S 05-14 09:09 → 5S 05-14 14:20 → 6N 05-18 21:18 → 6S 05-22 10:30 → 4E 05-23 18:02
PROVIDERS: ADMIT Internal Medicine; ATTEND Internal Medicine
DX: E87.6 Hypokalemia (principal); E43 Unspecified severe protein-calorie malnutrition; A04.72 Enterocolitis due to Clostridium difficile, not specified as recurrent; E87.1 Hypo-osmolality and hyponatremia; Z20.822 Contact with and (suspected) exposure to COVID-19; I10 Essential (primary) hypertension; F20.9 Schizophrenia, unspecified; Z53.20 Procedure and treatment not carried out because of patient's decision for unspecified reasons; F41.9 Anxiety disorder, unspecified; Z91.011 Allergy to milk products; Z91.199 Patient's noncompliance with other medical treatment and regimen due to unspecified reason; Z68.24 Body mass index [BMI] 24.0-24.9, adult
CPT/HCPCS: 80048; 82040; 83690; 83735; 84132; 85025; 87481; 99285; G0378; J1200; J1630; J1644; J2060; J3475; J3480; J3486; J7030; J7040; J7120

== ENCOUNTER 2024-07-31 13:43 | Inpatient (IN) | payer MEDICARE, MEDICAID ==
[~2024-07-31] VITALS: Ht 177.8 cm; Wt 85.0 kg
[2024-07-31] MEDS: LORazepam 2 MG/ML VIAL IM ONE (14:30)
[2024-07-31] MEDS: DiphenhydrAMINE HCL 50 MG/ML VIAL IM ONE (14:30)
[2024-07-31 14:40] LABS: BASOPHILS % (AUTO) 0.3 % (0.0-2.0); EOSINOPHILS % (AUTO) 4.1 % (1.0-6.0); HEMATOCRIT 40.5 % (41-53); HEMOGLOBIN 13.7 g/dL (13.5-17.5); LYMPHOCYTES % (AUTO) 20.7 % (22.0-44.0); MEAN CORPUSCULAR HEMOGLOBIN 31.8 pg (26.0-34.0); MEAN CORPUSCULAR HGB CONC 33.8 G/dL (31.0-37.0); MEAN CORPUSCULAR VOLUME 94 fL (80-100); MONOCYTES % (AUTO) 10.3 % (2.0-9.0); NEUTROPHILS # (AUTO) 6.2 K/uL (1.8-7.7); NEUTROPHILS % (AUTO) 64.6 % (40.0-70.0); PLATELET COUNT (AUTO) 236 K/uL (150-450); RED CELL DISTRIBUTION WIDTH 14.9 % (11.5-14.5); WHITE BLOOD COUNT (AUTO) 9.6 K/uL (4.5-11.0)
[2024-07-31 14:44] LABS: ANION GAP 8 mmol/L (8-16); CALCIUM, TOTAL 8.9 mg/dL (8.8-10.5); CARBON DIOXIDE 28 mmol/L (22-29); CHLORIDE 102 mmol/L (98-107); CREATININE 0.89 mg/dL (0.60-1.30); GLOMERULAR FILTR. RATE CALC > 60 mL/min (>60); GLUCOSE,RANDOM 108 mg/dL (70-110); SODIUM SERUM 138 mmol/L (136-145); UREA NITROGEN, BLOOD 23 mg/dL (7-18)
[2024-07-31 14:51] LABS: TROPONIN I-HIGH SENSITIVITY 11 ng/L (<76)
[2024-07-31 15:08] LABS: CREATINE KINASE, TOTAL ONLY 132 U/L (39-308)
[2024-07-31 15:52] LABS: COVID AG,FIA SOURCE NASAL SWAB
[2024-07-31 16:13] LABS: SARS-COV2 (COVID) ANTIGEN,FIA Negative (Negative)
[2024-07-31] MEDS ORDERED: OLANZapine 5 MG RAPDIS TABLET PO PRN (18:30)
[2024-07-31] MEDS ORDERED: ZOLPIDEM TARTRATE 10 MG TABLET PO PRN (18:30)
[2024-07-31] MEDS ORDERED: LORazepam 1 MG TABLET PO PRN (18:30)
[2024-07-31] MEDS ORDERED: ChlorproMAZINE HCL 100 MG TABLET PO PRN (18:45)
[2024-07-31] MEDS: GABAPENTIN 300 MG CAPSULE PO SCH (20:32)
[2024-07-31] MEDS: MELATONIN 5 MG TABLET PO SCH (20:32)
[2024-08-01 02:11] VITALS: BP 114/62; PULSE 78; RESP 16; O2SAT 97
[2024-08-01] MEDS: INFLUENZA VIRUS VACCINE TVS (6MO+) 2024-25/PF 45 MCG/0.5 ML SYRINGE IM. ONE (05:57)
[2024-08-01] MEDS: DIVALPROEX SODIUM 500 MG DR TABLET PO SCH (06:46)
[2024-08-01] MEDS: OLANZapine 5 MG RAPDIS TABLET PO SCH (06:46)
[2024-08-01] MEDS ORDERED: DOCUSATE SODIUM 100 MG CAPSULE PO PRN (08:30)
[2024-08-01] MEDS ORDERED: ALBUTEROL SULFATE HFA 90 MCG/PUFF 8 GM INHALER IH PRN (08:30)
[2024-08-01] MEDS ORDERED: IBUPROFEN 600 MG TABLET PO PRN (08:30)
[2024-08-01] MEDS ORDERED: MAGNESIUM HYDROXIDE SUSPENSION 30 ML UDCUP PO PRN (08:30)
[2024-08-01] MEDS ORDERED: ACETAMINOPHEN 325 MG TABLET PO PRN (08:30)
[2024-08-01] MEDS ORDERED: MAG HYDROX/ALUMINUM HYD/SIMETH ES 30 ML SUSPENSION UDCUP PO PRN (08:30)
[2024-08-01] MEDS ORDERED: ONDANSETRON 4 MG TABLET PO PRN (08:30)
[2024-08-01] MEDS ORDERED: BENZOCAINE/MENTHOL LOZENGE PO PRN (08:30)
[2024-08-01] MEDS ORDERED: BACITRACIN 28 GM OINTMENT TP PRN (08:30)
[2024-08-01] MEDS ORDERED: PETROLATUM,WHITE 28 GM JELLY TP PRN (08:30)
[2024-08-01] MEDS ORDERED: OMEPRAZOLE 20 MG CAPSULE PO PRN (08:30)
[2024-08-01] MEDS ORDERED: CloNIDine HCL 0.1 MG TABLET PO PRN (08:30)
[2024-08-01] MEDS ORDERED: LOPERAMIDE HCL 2 MG CAPSULE PO PRN (08:30)
[2024-08-01 10:41] VITALS: BP 116/80; PULSE 86; RESP 17; TEMP 97; O2SAT 97
[2024-08-01] MEDS ORDERED: HALOPERIDOL LACTATE 5 MG/ML VIAL IM PRN (16:30)
[2024-08-01 20:26] VITALS: BP 118/68; PULSE 84; RESP 18; TEMP 98.7; O2SAT 96
[2024-08-02] MEDS ORDERED: FluPHENAZine HCL 2.5 MG/ML INJ IM PRN (09:30)
[2024-08-02] MEDS ORDERED: ZOLPIDEM TARTRATE 5 MG TABLET PO PRN (15:30)
[2024-08-02] MEDS: GABAPENTIN 300 MG CAPSULE PO SCH (16:15)
[2024-08-02 20:00] VITALS: RESP 16
[2024-08-03 09:35] VITALS: RESP 18
[2024-08-03 20:44] VITALS: RESP 18
[2024-08-04 08:43] VITALS: RESP 16
[2024-08-05 00:05] VITALS: RESP 18
[2024-08-05 08:12] VITALS: RESP 18
[2024-08-05 20:15] VITALS: RESP 18
[2024-08-06 08:15] VITALS: RESP 17
[2024-08-06 20:00] VITALS: RESP 16
[2024-08-07 08:19] VITALS: RESP 18
[2024-08-09 10:16] VITALS: RESP 16
[2024-08-09] MEDS: ChlorproMAZINE HCL 50 MG/2 ML AMP IM PRN (17:44)
[2024-08-09 21:24] VITALS: RESP 18
[2024-08-10 08:33] VITALS: RESP 18
[2024-08-10 20:00] VITALS: RESP 18
[2024-08-11 16:31] VITALS: RESP 18
[2024-08-11 20:31] VITALS: RESP 17
[2024-08-12 08:26] VITALS: RESP 18
[2024-08-12] MEDS: BENZTROPINE MESYLATE 0.5 MG TABLET PO SCH (17:00)
[2024-08-12 20:20] VITALS: RESP 19
[2024-08-13 10:57] VITALS: RESP 18
[2024-08-13 20:15] VITALS: RESP 19
[2024-08-14 08:21] VITALS: BP 105/53; PULSE 82; RESP 16; TEMP 97
[2024-08-15 00:19] VITALS: RESP 18
[2024-08-15 08:24] VITALS: BP 115/62; PULSE 86; RESP 17; TEMP 97.4; O2SAT 98
[2024-08-15] MEDS: ChlorproMAZINE HCL 50 MG/2 ML AMP IM PRN (17:44)
[2024-08-15 20:00] VITALS: RESP 18
[2024-08-15] MEDS: VALPROIC ACID 250 MG/5 ML SOLUTION UDCUP PO SCH (20:34)
[2024-08-16 08:05] VITALS: RESP 16
[2024-08-16 20:29] VITALS: BP 116/58; PULSE 92; RESP 16; TEMP 98
[2024-08-17 13:51] VITALS: RESP 18
[2024-08-17 20:00] VITALS: RESP 17; TEMP 97.7
[2024-08-18 08:49] VITALS: BP 113/53; PULSE 81; RESP 18; TEMP 96.8
[2024-08-19 00:30] VITALS: RESP 18
[2024-08-19] MEDS ORDERED: MELA5TAB40 PO (07:57)
[2024-08-19] MEDS ORDERED: OLAN5TAB94 PO (07:57)
[2024-08-19] MEDS ORDERED: VALP250S23 PO (07:57)
[2024-08-19 10:02] VITALS: RESP 18
== END 2024-08-19 13:50 | DRG 885 ==
LOC: EMS 13:43 → B2X 08-01 00:30
PROVIDERS: ADMIT Psychiatry & Neurology Psychiatry; ATTEND Psychiatry & Neurology Psychiatry
PROC: GZHZZZZ Group Psychotherapy (ICD-10-PCS; principal; 2024-08-01)
PROC: GZ58ZZZ Individual Psychotherapy, Cognitive-Behavioral (ICD-10-PCS; 2024-08-01)
PROC: GZ56ZZZ Individual Psychotherapy, Supportive (ICD-10-PCS; 2024-08-01)
DX: F25.0 Schizoaffective disorder, bipolar type (principal); E78.00 Pure hypercholesterolemia, unspecified; I25.10 Atherosclerotic heart disease of native coronary artery without angina pectoris; Z20.822 Contact with and (suspected) exposure to COVID-19; F32.A Depression, unspecified; G47.00 Insomnia, unspecified; K21.9 Gastro-esophageal reflux disease without esophagitis; K59.00 Constipation, unspecified; I10 Essential (primary) hypertension; Z91.199 Patient's noncompliance with other medical treatment and regimen due to unspecified reason; Z88.8 Allergy status to other drugs, medicaments and biological substances; Z55.9 Problems related to education and literacy, unspecified; Z59.9 Problem related to housing and economic circumstances, unspecified; Z63.9 Problem related to primary support group, unspecified; Z65.3 Problems related to other legal circumstances; Z71.6 Tobacco abuse counseling; Z78.1 Physical restraint status; F17.200 Nicotine dependence, unspecified, uncomplicated; F41.9 Anxiety disorder, unspecified; F03.90 Unspecified dementia, unspecified severity, without behavioral disturbance, psychotic disturbance, mood disturbance, and anxiety; M19.90 Unspecified osteoarthritis, unspecified site
CPT/HCPCS: 71045; 80048; 82550; 84484; 85025; 87081; 87481; 93005; 99291; J1200; J2060; J3230; 36415-L1; 36415-TC

== ENCOUNTER 2024-09-01 09:09 | Inpatient (IN) | payer MEDICARE, MEDICAID ==
[~2024-09-01] VITALS: Ht 170.2 cm; Wt 85.3 kg
[~2024-09-01 09:09] MED LIST changes: -BENZ2TAB84 PO; +MELA5TAB40 PO; +OLAN5TAB94 PO; -RISP3TAB77 PO; +VALP250S23 PO
[2024-09-01] MEDS ORDERED: OLANZapine 5 MG RAPDIS TABLET PO PRN (09:45)
[2024-09-01] MEDS ORDERED: LORazepam 2 MG TABLET PO PRN (09:45)
[2024-09-01] MEDS ORDERED: ZOLPIDEM TARTRATE 10 MG TABLET PO PRN (09:45)
[2024-09-01 09:57] LABS: COVID AG,FIA SOURCE NASAL SWAB
[2024-09-01 09:58] LABS: BASOPHILS % (AUTO) 0.4 % (0.0-2.0); EOSINOPHILS % (AUTO) 3.6 % (1.0-6.0); HEMATOCRIT 41.9 % (41-53); LYMPHOCYTES # (AUTO) 2.1 K/uL (1.0-4.8); LYMPHOCYTES % (AUTO) 24.1 % (22.0-44.0); MEAN CORPUSCULAR HEMOGLOBIN 31.3 pg (26.0-34.0); MEAN CORPUSCULAR HGB CONC 33.4 G/dL (31.0-37.0); MEAN CORPUSCULAR VOLUME 94 fL (80-100); MONOCYTES # (AUTO) 0.9 K/uL (0.1-1.0); MONOCYTES % (AUTO) 9.9 % (2.0-9.0); NEUTROPHILS # (AUTO) 5.4 K/uL (1.8-7.7); PLATELET COUNT (AUTO) 288 K/uL (150-450); RED BLOOD CELL COUNT(AUTO) 4.46 MIL/uL (4.50-5.90); RED CELL DISTRIBUTION WIDTH 13.8 % (11.5-14.5); WHITE BLOOD COUNT (AUTO) 8.8 K/uL (4.5-11.0)
[2024-09-01 10:10] LABS: ANION GAP 7 mmol/L (8-16); CALCIUM, TOTAL 8.9 mg/dL (8.8-10.5); CARBON DIOXIDE 28 mmol/L (22-29); CHLORIDE 104 mmol/L (98-107); GLOMERULAR FILTR. RATE CALC > 60 mL/min (>60); GLUCOSE,RANDOM 88 mg/dL (70-110); POTASSIUM 4.4 mmol/L (3.5-5.1); SODIUM SERUM 139 mmol/L (136-145); UREA NITROGEN, BLOOD 27 mg/dL (7-18)
[2024-09-01 10:14] LABS: SARS-COV2 (COVID) ANTIGEN,FIA Negative (Negative)
[2024-09-01 10:22] LABS: APPEARANCE,URINE CLEAR (CLEAR); BILIRUBIN,URINE NEGATIVE (NEGATIVE); COLOR,URINE LIGHT YELLOW (YELLOW); GLUCOSE, URINE (UA) NEGATIVE (NEGATIVE); KETONES,URINE NEGATIVE (NEGATIVE); LEUKOCYTE ESTERASE ,URINE MODERATE (NEGATIVE); NITRATE,URINE NEGATIVE (NEGATIVE); OCCULT BLOOD,URINE NEGATIVE (NEGATIVE); PH,URINE 6.5 (5.0-8.0); PH,URINE DRUG SCREEN 6.5 (5.0-8.0); PROTEIN,URINE NEGATIVE (NEGATIVE); SPECIFIC GRAVITIY, URINE 1.011 (1.003-1.030); UROBILINOGEN,URINE <=1.0 mg/dL (<=1.0)
[2024-09-01 10:24] LABS: VALPROIC ACID 29 mcg/mL (50-100)
[2024-09-01 10:32] LABS: AMPHET/METH SCREEN,URINE NEGATIVE (NEGATIVE); BARBITURATE SCREEN, URINE NEGATIVE (NEGATIVE); BENZODIAZEPINES SCREEN,URINE NEGATIVE (NEGATIVE); CANNABINOID SCREEN,URINE NEGATIVE (NEGATIVE); COCAINE SCREEN,URINE NEGATIVE (NEGATIVE); METHADONE SCREEN, URINE NEGATIVE (NEGATIVE); OPIATE SCREEN,URINE NEGATIVE (NEGATIVE); PHENCYCLIDINE SCREEN,URINE NEGATIVE (NEGATIVE)
[2024-09-01 10:33] LABS: ALCOHOL, URINE DRUG SCREEN NEGATIVE (NEGATIVE)
[2024-09-01 10:42] LABS: ALCOHOL, BLOOD (SERUM) < 3 mg/dL (0-10)
[2024-09-01 10:47] LABS: BACTERIA,URINE None Seen /HPF (None Seen); RBC,URINE None Seen /HPF (0-2); SQUAMOUS EPITHELIAL CELL,UR Few /LPF (None Seen)
[2024-09-01 14:00] VITALS: O2SAT 99
[2024-09-01 16:24] VITALS: BP 134/63; PULSE 96; TEMP 98.3
[2024-09-01] MEDS ORDERED: ChlorproMAZINE HCL 100 MG TABLET PO PRN (18:00)
[2024-09-01] MEDS ORDERED: ZOLPIDEM TARTRATE 5 MG TABLET PO PRN (18:00)
[2024-09-01] MEDS ORDERED: LORazepam 1 MG TABLET PO PRN (18:00)
[2024-09-01] MEDS: VALPROIC ACID 250 MG/5 ML SOLUTION UDCUP PO SCH (21:00)
[2024-09-01] MEDS: MELATONIN 5 MG TABLET PO SCH (21:00)
[2024-09-02] MEDS: OLANZapine 5 MG RAPDIS TABLET PO SCH (09:00)
[2024-09-02] MEDS ORDERED: PROMETHAZINE HCL 25 MG TABLET PO PRN (11:15)
[2024-09-02] MEDS ORDERED: MAG HYDROX/ALUMINUM HYD/SIMETH ES 30 ML SUSPENSION UDCUP PO PRN (11:15)
[2024-09-02] MEDS ORDERED: GuaiFENesin/D-METHORPHAN [SUGAR-FREE] 200-20MG/10 ML SYRUP UDCUP PO PRN (11:15)
[2024-09-02] MEDS ORDERED: LOPERAMIDE HCL 2 MG CAPSULE PO PRN (11:15)
[2024-09-02] MEDS ORDERED: HydrOXYzine PAMOATE 50 MG CAPSULE PO PRN (11:15)
[2024-09-02] MEDS ORDERED: MAGNESIUM HYDROXIDE SUSPENSION 30 ML UDCUP PO PRN (11:15)
[2024-09-02] MEDS ORDERED: ACETAMINOPHEN 325 MG TABLET PO PRN (11:15)
[2024-09-02] MEDS: THIAMINE 100 MG TABLET PO SCH (17:00)
[2024-09-02 21:06] VITALS: BP 126/49; PULSE 78; RESP 16; TEMP 97.5; O2SAT 98
[2024-09-03] MEDS: MULTIVITAMINS WITH MINERALS, THERAPEUTIC TABLET PO SCH (08:37)
[2024-09-03] MEDS: FOLIC ACID 1 MG TABLET PO SCH (08:37)
[2024-09-03] MEDS: DIVALPROEX SODIUM 500 MG ER TABLET PO SCH (13:00)
[2024-09-03 17:27] VITALS: BP 108/66; PULSE 77; RESP 17; TEMP 98.3; O2SAT 98
[2024-09-03 21:23] VITALS: RESP 18
[2024-09-04 09:57] VITALS: BP 102/76; PULSE 100; RESP 18; TEMP 96.7; O2SAT 96
[2024-09-04 21:52] VITALS: RESP 18
[2024-09-05 14:39] VITALS: BP 99/56; PULSE 106; RESP 18; TEMP 97.6; O2SAT 97
[2024-09-05 21:40] VITALS: RESP 18
[2024-09-06 20:40] VITALS: BP 138/61; PULSE 77; RESP 18; TEMP 97.7; O2SAT 96
[2024-09-07 11:16] VITALS: RESP 18
[2024-09-07 22:24] VITALS: RESP 18; TEMP 97.8
[2024-09-08 10:46] VITALS: RESP 18
[2024-09-08 21:27] VITALS: RESP 18
[2024-09-09 09:25] VITALS: BP 124/62; PULSE 87; RESP 18; TEMP 97.8; O2SAT 98
[2024-09-09 21:10] VITALS: RESP 18
[2024-09-10 09:50] VITALS: BP 122/54; PULSE 89; RESP 18; TEMP 97.5; O2SAT 99
[2024-09-10 21:35] VITALS: RESP 18
[2024-09-11 21:11] VITALS: BP 119/55; PULSE 83; RESP 18; TEMP 97.5; O2SAT 99
[2024-09-12 09:45] VITALS: BP 154/97; PULSE 70; RESP 17; TEMP 97.3; O2SAT 96
[2024-09-12 21:47] VITALS: BP 114/79; PULSE 64; RESP 18; TEMP 97.6; O2SAT 96
[2024-09-13 11:25] VITALS: BP 125/68; PULSE 80; RESP 17; TEMP 97.7; O2SAT 96
[2024-09-13 21:02] VITALS: RESP 18
[2024-09-14 10:33] VITALS: BP 111/56; PULSE 73; RESP 18; TEMP 97.3; O2SAT 99
[2024-09-14 21:58] VITALS: RESP 18
[2024-09-16 09:00] VITALS: BP 146/82; PULSE 70; RESP 18; TEMP 97.5; O2SAT 95
[2024-09-17 09:36] VITALS: RESP 18
[2024-09-17 21:25] VITALS: BP 134/72; PULSE 88; RESP 18; TEMP 97; O2SAT 100
[2024-09-18 16:41] VITALS: RESP 18
[2024-09-18 22:43] VITALS: PULSE 82; RESP 17; TEMP 97.8; O2SAT 96
[2024-09-19 10:18] VITALS: RESP 18
[2024-09-19 21:53] VITALS: RESP 18
[2024-09-20 10:12] VITALS: RESP 18
[2024-09-20 20:33] VITALS: RESP 18
[2024-09-21] VITALS (9 sets, daily range): BP systolic 112–129; BP diastolic 74–80; PULSE 72–85; RESP 17–20; TEMP 96.9–98; O2SAT 96–99
[2024-09-22 10:02] VITALS: PULSE 72; RESP 18; TEMP 98.1
[2024-09-22] MEDS ORDERED: OLAN5TAB94 PO (11:58)
[2024-09-22] MEDS ORDERED: DIVA-153 PO (11:58)
[2024-09-22 21:28] VITALS: RESP 18
[2024-09-23 09:50] VITALS: RESP 18
[2024-09-23 09:55] VITALS: RESP 17
== END 2024-09-23 13:13 | DRG 885 ==
LOC: EMS 09:11 → 3EX 15:11
PROVIDERS: ADMIT Psychiatry & Neurology Psychiatry; ATTEND Psychiatry & Neurology Psychiatry
PROC: GZHZZZZ Group Psychotherapy (ICD-10-PCS; principal; 2024-09-02)
PROC: GZ52ZZZ Individual Psychotherapy, Cognitive (ICD-10-PCS; 2024-09-02)
PROC: GZ56ZZZ Individual Psychotherapy, Supportive (ICD-10-PCS; 2024-09-02)
DX: F20.0 Paranoid schizophrenia (principal); F03.918 Unspecified dementia, unspecified severity, with other behavioral disturbance; F03.94 Unspecified dementia, unspecified severity, with anxiety; G47.00 Insomnia, unspecified; K59.00 Constipation, unspecified; E78.00 Pure hypercholesterolemia, unspecified; I25.10 Atherosclerotic heart disease of native coronary artery without angina pectoris; Z60.8 Other problems related to social environment; Z20.822 Contact with and (suspected) exposure to COVID-19; K21.9 Gastro-esophageal reflux disease without esophagitis; R41.89 Other symptoms and signs involving cognitive functions and awareness; I11.9 Hypertensive heart disease without heart failure; R45.86 Emotional lability; Z91.199 Patient's noncompliance with other medical treatment and regimen due to unspecified reason; Z91.148 Patient's other noncompliance with medication regimen for other reason; Z88.8 Allergy status to other drugs, medicaments and biological substances
CPT/HCPCS: 80048; 80164; 80307; 81001; 85025; 87081; 99285; G0378; G0480

== ENCOUNTER 2024-11-25 12:22 | Inpatient (IN) | payer MEDICARE, MEDICAID ==
[~2024-11-25] VITALS: Ht 162.6 cm; Wt 82.7 kg
[~2024-11-25 12:22] MED LIST changes: +DIVA-153 PO; -MELA5TAB40 PO; -VALP250S23 PO
[2024-11-25 13:20] LABS: COVID AG,FIA SOURCE NASAL SWAB
[2024-11-25 13:27] LABS: APPEARANCE,URINE CLEAR (CLEAR); BILIRUBIN,URINE NEGATIVE (NEGATIVE); COLOR,URINE LIGHT YELLOW (YELLOW); GLUCOSE, URINE (UA) NEGATIVE (NEGATIVE); KETONES,URINE NEGATIVE (NEGATIVE); LEUKOCYTE ESTERASE ,URINE NEGATIVE (NEGATIVE); NITRATE,URINE NEGATIVE (NEGATIVE); OCCULT BLOOD,URINE NEGATIVE (NEGATIVE); PH,URINE 6.5 (5.0-8.0); PH,URINE DRUG SCREEN 6.5 (5.0-8.0); PROTEIN,URINE NEGATIVE (NEGATIVE); SPECIFIC GRAVITIY, URINE 1.016 (1.003-1.030); UROBILINOGEN,URINE <=1.0 mg/dL (<=1.0)
[2024-11-25] MEDS ORDERED: MAG30ORA11 PO (13:36)
[2024-11-25] MEDS ORDERED: ZOLP-162 PO (13:36)
[2024-11-25 13:37] LABS: ALCOHOL, URINE DRUG SCREEN NEGATIVE (NEGATIVE); AMPHET/METH SCREEN,URINE NEGATIVE (NEGATIVE); BARBITURATE SCREEN, URINE NEGATIVE (NEGATIVE); BENZODIAZEPINES SCREEN,URINE NEGATIVE (NEGATIVE); CANNABINOID SCREEN,URINE NEGATIVE (NEGATIVE); COCAINE SCREEN,URINE NEGATIVE (NEGATIVE); METHADONE SCREEN, URINE NEGATIVE (NEGATIVE); OPIATE SCREEN,URINE NEGATIVE (NEGATIVE); PHENCYCLIDINE SCREEN,URINE NEGATIVE (NEGATIVE)
[2024-11-25] MEDS ORDERED: MULT-1303 PO (13:40)
[2024-11-25 13:46] LABS: BASOPHILS % (AUTO) 0.2 % (0.0-2.0); EOSINOPHILS % (AUTO) 1.1 % (1.0-6.0); HEMATOCRIT 43.7 % (41-53); HEMOGLOBIN 14.3 g/dL (13.5-17.5); LYMPHOCYTES # (AUTO) 1.5 K/uL (1.0-4.8); LYMPHOCYTES % (AUTO) 10.5 % (22.0-44.0); MEAN CORPUSCULAR HEMOGLOBIN 29.3 pg (26.0-34.0); MEAN CORPUSCULAR HGB CONC 32.7 G/dL (31.0-37.0); MEAN CORPUSCULAR VOLUME 90 fL (80-100); MONOCYTES # (AUTO) 1.4 K/uL (0.1-1.0); MONOCYTES % (AUTO) 9.8 % (2.0-9.0); NEUTROPHILS # (AUTO) 10.9 K/uL (1.8-7.7); NEUTROPHILS % (AUTO) 78.4 % (40.0-70.0); PLATELET COUNT (AUTO) 260 K/uL (150-450); RED BLOOD CELL COUNT(AUTO) 4.86 MIL/uL (4.50-5.90); RED CELL DISTRIBUTION WIDTH 15.8 % (11.5-14.5); WHITE BLOOD COUNT (AUTO) 13.9 K/uL (4.5-11.0)
[2024-11-25 13:57] LABS: ANION GAP 10 mmol/L (8-16); CALCIUM, TOTAL 9.1 mg/dL (8.8-10.5); CARBON DIOXIDE 28 mmol/L (22-29); CHLORIDE 102 mmol/L (98-107); CREATININE 0.72 mg/dL (0.60-1.30); GLOMERULAR FILTR. RATE CALC > 60 mL/min (>60); GLUCOSE,RANDOM 100 mg/dL (70-110); POTASSIUM 3.9 mmol/L (3.5-5.1); SODIUM SERUM 140 mmol/L (136-145); UREA NITROGEN, BLOOD 21 mg/dL (7-18)
[2024-11-25 14:10] LABS: SARS-COV2 (COVID) ANTIGEN,FIA Negative (Negative)
[2024-11-25] MEDS ORDERED: LORazepam 1 MG TABLET PO PRN (14:15)
[2024-11-25 14:20] LABS: ALCOHOL, BLOOD (SERUM) < 3 mg/dL (0-10)
[2024-11-25 18:11] VITALS: O2SAT 95
[2024-11-25] MEDS: ChlorproMAZINE HCL 50 MG TABLET PO SCH (21:00)
[2024-11-25] MEDS: VALPROIC ACID 250 MG/5 ML SOLUTION UDCUP PO SCH (21:00)
[2024-11-25] MEDS: ChlorproMAZINE HCL 50 MG/2 ML AMP IM PRN (21:20)
[2024-11-25] MEDS: ACETAMINOPHEN/CODEINE 300-30 MG TABLET PO ONE (22:01)
[2024-11-25 23:55] VITALS: BP 115/75; PULSE 66; RESP 18; TEMP 98.7; O2SAT 95
[2024-11-26] MEDS: ChlorproMAZINE HCL 10 MG TABLET PO SCH (09:00)
[2024-11-26] MEDS ORDERED: LOPERAMIDE HCL 2 MG CAPSULE PO PRN (09:15)
[2024-11-26] MEDS ORDERED: PROMETHAZINE HCL 25 MG TABLET PO PRN (09:15)
[2024-11-26] MEDS ORDERED: MAG HYDROX/ALUMINUM HYD/SIMETH ES 30 ML SUSPENSION UDCUP PO PRN (09:15)
[2024-11-26] MEDS ORDERED: MAGNESIUM HYDROXIDE SUSPENSION 30 ML UDCUP PO PRN (09:15)
[2024-11-26] MEDS ORDERED: HydrOXYzine PAMOATE 50 MG CAPSULE PO PRN (09:15)
[2024-11-26] MEDS: THIAMINE 100 MG TABLET PO SCH (17:00)
[2024-11-26 21:49] VITALS: RESP 18; O2SAT 0
[2024-11-27] MEDS: FOLIC ACID 1 MG TABLET PO SCH (08:45)
[2024-11-27] MEDS: MULTIVITAMINS WITH MINERALS, THERAPEUTIC TABLET PO SCH (08:45)
[2024-11-27 09:23] VITALS: RESP 18
[2024-11-27 21:21] VITALS: RESP 18; TEMP 97.1
[2024-11-28] MEDS ORDERED: ALBUTEROL SULFATE HFA 90 MCG/PUFF 8 GM INHALER IH PRN (07:45)
[2024-11-28 14:31] VITALS: RESP 18
[2024-11-28 22:10] VITALS: BP 128/60; PULSE 73; RESP 18; TEMP 98.1; O2SAT 95
[2024-11-29 22:18] VITALS: RESP 18
[2024-11-30 10:49] VITALS: RESP 18
[2024-11-30] MEDS: GuaiFENesin/D-METHORPHAN [SUGAR-FREE] 200-20MG/10 ML SYRUP UDCUP PO PRN (22:00)
[2024-12-01 09:06] VITALS: RESP 18
[2024-12-01 20:27] VITALS: RESP 16; TEMP 98.4
[2024-12-02 10:21] VITALS: BP 121/68; PULSE 72; RESP 19; TEMP 98
[2024-12-02 21:14] VITALS: RESP 18
[2024-12-03 11:48] VITALS: BP 109/88; PULSE 78; RESP 18; TEMP 98; O2SAT 96
[2024-12-03 22:10] VITALS: RESP 18
[2024-12-04 08:10] VITALS: RESP 18; TEMP 98.5
[2024-12-04 22:19] VITALS: BP 117/93; PULSE 92; RESP 18; TEMP 97.3; O2SAT 95
[2024-12-05 18:52] VITALS: RESP 20
[2024-12-05 23:06] VITALS: RESP 18
[2024-12-06 21:51] VITALS: RESP 18; TEMP 97.4
[2024-12-07 10:40] VITALS: RESP 18
[2024-12-07 23:49] VITALS: RESP 18
[2024-12-08 21:33] VITALS: RESP 18
[2024-12-09 16:27] VITALS: RESP 18
[2024-12-09 21:20] VITALS: BP 129/86; PULSE 87; RESP 18; TEMP 97.6; O2SAT 94
[2024-12-10 22:33] VITALS: RESP 18
[2024-12-11 09:41] VITALS: RESP 18
[2024-12-11 20:45] VITALS: RESP 18
[2024-12-12 08:00] VITALS: RESP 18
[2024-12-12 20:28] VITALS: RESP 18
[2024-12-13 09:24] VITALS: BP 95/65; PULSE 76; RESP 18; TEMP 97.3
[2024-12-13 22:03] VITALS: RESP 18
[2024-12-14 15:02] VITALS: RESP 18
[2024-12-14 22:14] VITALS: RESP 18
[2024-12-15 10:32] VITALS: RESP 17
[2024-12-15 22:00] VITALS: RESP 18; TEMP 96.8
[2024-12-16 11:27] VITALS: RESP 18
[2024-12-16 23:28] VITALS: RESP 18
[2024-12-17 08:50] VITALS: RESP 19
[2024-12-17] MEDS: amantadine HCL 100 MG CAPSULE PO SCH (17:00)
[2024-12-17] MEDS: ChlorproMAZINE HCL 50 MG/2 ML AMP IM PRN (22:00)
[2024-12-18 12:37] VITALS: RESP 18
[2024-12-18 22:19] VITALS: RESP 18
[2024-12-19] MEDS: RisperiDONE CONC 1 MG/ML SOLUTION ORAL.SYG PO SCH (12:44)
[2024-12-19 15:33] VITALS: RESP 18
[2024-12-19 23:28] VITALS: RESP 18
[2024-12-20 10:36] VITALS: RESP 18
[2024-12-20] MEDS ORDERED: ChlorproMAZINE HCL 50 MG/2 ML AMP IM PRN (19:00)
[2024-12-20] MEDS: RisperiDONE CONC 1 MG/ML SOLUTION ORAL.SYG PO SCH (21:00)
[2024-12-20] MEDS: ChlorproMAZINE HCL 50 MG/2 ML AMP IM PRN (21:50)
[2024-12-20 22:32] VITALS: RESP 18
[2024-12-21 22:08] VITALS: RESP 18
[2024-12-22 14:06] VITALS: RESP 18
[2024-12-23 01:00] VITALS: RESP 18
[2024-12-23 10:39] VITALS: RESP 17; TEMP 98.3
[2024-12-23 21:06] VITALS: O2SAT 0
[2024-12-23] MEDS: ChlorproMAZINE HCL 50 MG/2 ML AMP IM PRN (21:46)
[2024-12-24 07:17] LABS: BASOPHILS % (AUTO) 0.2 % (0.0-2.0); EOSINOPHILS % (AUTO) 2.7 % (1.0-6.0); HEMATOCRIT 42.4 % (41-53); HEMOGLOBIN 14.1 g/dL (13.5-17.5); LYMPHOCYTES # (AUTO) 2.5 K/uL (1.0-4.8); LYMPHOCYTES % (AUTO) 23.5 % (22.0-44.0); MEAN CORPUSCULAR HEMOGLOBIN 29.7 pg (26.0-34.0); MEAN CORPUSCULAR HGB CONC 33.2 G/dL (31.0-37.0); MEAN CORPUSCULAR VOLUME 89 fL (80-100); MONOCYTES # (AUTO) 1.2 K/uL (0.1-1.0); MONOCYTES % (AUTO) 11.2 % (2.0-9.0); NEUTROPHILS # (AUTO) 6.7 K/uL (1.8-7.7); NEUTROPHILS % (AUTO) 62.4 % (40.0-70.0); PLATELET COUNT (AUTO) 289 K/uL (150-450); RED BLOOD CELL COUNT(AUTO) 4.74 MIL/uL (4.50-5.90); RED CELL DISTRIBUTION WIDTH 15.1 % (11.5-14.5); WHITE BLOOD COUNT (AUTO) 10.7 K/uL (4.5-11.0)
[2024-12-24 07:43] LABS: ALANINE AMINOTRANSFERASE 20 U/L (12-78); ALBUMIN 2.9 g/dL (3.4-5.0); ALKALINE PHOSPHATASE 74 U/L (46-116); ANION GAP 8 mmol/L (8-16); ASPARTATE AMINOTRANSFERASE 26 U/L (15-37); BILIRUBIN,TOTAL 0.5 mg/dL (0.1-1.0); CARBON DIOXIDE 29 mmol/L (22-29); CHLORIDE 101 mmol/L (98-107); CREATININE 0.92 mg/dL (0.60-1.30); FREE T4 (FREE THYROXINE) 0.77 ng/dL (0.76-1.46); GLOMERULAR FILTR. RATE CALC > 60 mL/min (>60); GLUCOSE,RANDOM 93 mg/dL (70-110); POTASSIUM 4.2 mmol/L (3.5-5.1); SODIUM SERUM 138 mmol/L (136-145); TOTAL PROTEIN, SERUM 7.4 g/dL (6.4-8.2); UREA NITROGEN, BLOOD 17 mg/dL (7-18)
[2024-12-24 07:46] LABS: HEMOGLOBIN A1C 5.5 % (3.8-5.6)
[2024-12-24 08:30] VITALS: RESP 16
[2024-12-24 22:25] VITALS: RESP 18; O2SAT 0
[2024-12-25 11:34] VITALS: RESP 18; O2SAT 0
[2024-12-25 21:32] VITALS: RESP 18
[2024-12-25] MEDS: ZOLPIDEM TARTRATE 10 MG TABLET PO PRN (22:01)
[2024-12-25] MEDS: ChlorproMAZINE HCL 50 MG/2 ML AMP IM PRN (22:44)
[2024-12-26 09:11] VITALS: RESP 18
[2024-12-26 22:46] VITALS: RESP 18
[2024-12-27 10:16] VITALS: RESP 17
[2024-12-27 21:40] VITALS: RESP 19
[2024-12-28 08:30] VITALS: RESP 18
[2024-12-28] MEDS: ChlorproMAZINE HCL 25 MG TABLET PO ONE (14:30)
[2024-12-28 20:57] VITALS: RESP 18
[2024-12-29 22:26] VITALS: BP 130/69; PULSE 74; RESP 18; TEMP 97
[2024-12-30 14:45] VITALS: RESP 20
[2024-12-30] MEDS: RisperiDONE CONC 1 MG/ML SOLUTION ORAL.SYG PO SCH (17:00)
[2024-12-30] MEDS: ChlorproMAZINE HCL 50 MG/2 ML AMP IM PRN (18:42)
[2024-12-30 22:01] VITALS: RESP 19; TEMP 98.1
[2024-12-31 09:29] VITALS: RESP 18
[2024-12-31 23:00] VITALS: PULSE 86; RESP 18; TEMP 98.1; O2SAT 98
[2025-01-01 15:19] VITALS: RESP 17; TEMP 98
[2025-01-01 22:41] VITALS: RESP 18
[2025-01-02 12:48] VITALS: RESP 18
[2025-01-02 21:00] VITALS: RESP 18
[2025-01-03 18:07] VITALS: RESP 19
[2025-01-03 20:40] VITALS: RESP 17
[2025-01-04 08:15] VITALS: RESP 18
[2025-01-05 00:44] VITALS: RESP 18
[2025-01-05 15:38] VITALS: RESP 18
[2025-01-05 23:00] VITALS: RESP 18
[2025-01-06 22:41] VITALS: RESP 18
[2025-01-07 09:00] VITALS: RESP 18; TEMP 98.6
[2025-01-07 23:08] VITALS: BP 136/64; PULSE 81; RESP 18; TEMP 97.9; O2SAT 97
[2025-01-08 09:00] VITALS: RESP 18
[2025-01-08] MEDS: RisperiDONE CONC 1 MG/ML SOLUTION ORAL.SYG PO SCH (09:00)
[2025-01-08] MEDS: PALIPERIDONE PALMITATE 234 MG/1.5 ML SYRINGE IM ONE (11:06)
[2025-01-08 23:55] VITALS: RESP 18; TEMP 98.1
[2025-01-10 11:03] VITALS: BP 118/67; PULSE 81; RESP 18; TEMP 97.3; O2SAT 96
[2025-01-10 23:26] VITALS: BP 101/87; PULSE 61; RESP 18; TEMP 97; O2SAT 100
[2025-01-11 11:08] VITALS: BP 103/64; PULSE 94; RESP 17; TEMP 97.7; O2SAT 95
[2025-01-11 20:15] VITALS: RESP 17
[2025-01-12] MEDS ORDERED: PALIPERIDONE PALMITATE 156 MG/ML SYRINGE IM ONE (09:00)
[2025-01-12 14:32] VITALS: RESP 18
[2025-01-12 20:45] VITALS: BP 98/86; PULSE 91; RESP 18; TEMP 98.9
[2025-01-13] MEDS ORDERED: AMAN-24 PO (12:07)
[2025-01-13] MEDS ORDERED: PALI117D IM (12:07)
[2025-01-13] MEDS: PALIPERIDONE PALMITATE 156 MG/ML SYRINGE IM ONE (12:39)
[2025-01-13 15:52] VITALS: BP 120/56; PULSE 92; RESP 17; TEMP 97.8; O2SAT 92
[2025-01-14 09:07] LABS: CHLORPROMAZINE 87 ng/mL (30-300)
== END 2025-01-13 17:56 | DRG 885 ==
LOC: EMS 12:22 → 3EX 22:47
PROVIDERS: ADMIT Psychiatry & Neurology Psychiatry; ATTEND Psychiatry & Neurology Psychiatry
PROC: GZHZZZZ Group Psychotherapy (ICD-10-PCS; principal; 2024-11-26)
PROC: GZ56ZZZ Individual Psychotherapy, Supportive (ICD-10-PCS; 2024-11-26)
PROC: GZ58ZZZ Individual Psychotherapy, Cognitive-Behavioral (ICD-10-PCS; 2024-11-26)
DX: F20.0 Paranoid schizophrenia (principal); F03.92 Unspecified dementia, unspecified severity, with psychotic disturbance; F03.93 Unspecified dementia, unspecified severity, with mood disturbance; F03.94 Unspecified dementia, unspecified severity, with anxiety; I10 Essential (primary) hypertension; D64.9 Anemia, unspecified; K21.9 Gastro-esophageal reflux disease without esophagitis; G89.29 Other chronic pain; F94.0 Selective mutism; Z20.822 Contact with and (suspected) exposure to COVID-19; I25.10 Atherosclerotic heart disease of native coronary artery without angina pectoris; E78.00 Pure hypercholesterolemia, unspecified; Z55.9 Problems related to education and literacy, unspecified; Z59.9 Problem related to housing and economic circumstances, unspecified; Z63.9 Problem related to primary support group, unspecified; Z65.3 Problems related to other legal circumstances; Z91.148 Patient's other noncompliance with medication regimen for other reason; Z88.8 Allergy status to other drugs, medicaments and biological substances
CPT/HCPCS: 80048; 80053; 80061; 80307; 80342; 81003; 83036; 84439; 84443; 85025; 99285; G0378; G0480; J3230